=== PATIENT | female | born 1955 | race African-American/Black ===

== ENCOUNTER 2016-08-03 08:26 | Emergency (ER) | payer MEDICARE, MEDICAID ==
[~2016-08-03 08:26] MED LIST: ALPR0.25 PO; ALPR0.5T6 PO; AMLO5TAB2 PO; ASPI325T11 PO; ASPI81TA44 PO; CLON0.1T PO; FLUT16SP NS; IBUP-1007 PO; LOSA100T6 PO; METF10002 PO; METO25TA2 PO; METO25TA9 PO; MOME17SP NS; OMEP20TA PO; SIMV20TA3 PO; SITA50TA PO; TRAV5DRO EACHEYE
[2016-08-03 08:39] VITALS: BP 139/99
--- NOTE | 2016-08-03 09:56 | EKG ---
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
--- NOTE | 2016-08-03 10:01 | RAD ---
Right shoulder, 3 views, 08/03/2016: History: Shoulder pain No fracture or dislocation is identified. There is mild spurring at the AC joint. There are mild sclerotic and cystic changes at rotator cuff insertion sites on the greater tuberosity. The periarticular soft tissues are unremarkable. IMPRESSION: 1. Mild degenerative change. 2. No acute bony abnormality is detected.
--- NOTE | 2016-08-03 10:02 | RAD ---
Right hand, 3 views, 08/03/2016: History: Hand pain No fracture or destructive bony lesion is seen. There are mild degenerative changes at scattered interphalangeal joints as well as the first CMC joint. IMPRESSION: No acute bony abnormality is detected.
--- NOTE | 2016-08-03 10:27 | RAD ---
Examination: Ultrasound right upper extremity venous system History: History of right arm pain Comparison: None available Technique: Grayscale, color Doppler 2-D, spectral waveform of the right upper extremity venous system were performed Findings: The visualized internal jugular vein, subclavian vein, axillary vein, brachial vein, basilic vein, cephalic vein, radial and ulnar veins are patent. Impression: No evidence of deep venous thrombosis identified in the visualized right upper extremity venous system.
--- NOTE | 2016-08-03 10:51 | PHYS DOC ---
Past Medical History Past Medical History: Other Past Surgical History: Other Additional Past Surgical Histo: HEMMORHOIDECTOMY Alcohol Use: None Drug Use: None Adult General Chief Complaint Chief Complaint: UPPER EXTREMITY PAIN [facility] HPI Patient is a 60 year old female who presents with moderate right hand pain that she states has been going on for months. Patient denies any known injury. She states she had surgery done approximately 6 months ago to remove fluid from her ears. Patient states they did put an IV on her right wrist and she is concerned she could have a blood clot. Patient is also complaining of right shoulder pain which she states is coming from rotator cuff issues. Patient denies any known injury. She is requesting radiology studies to see why she has this pain including venous doppler. Patient denies any chest pain or shortness of breath. PCP is Dr.KOduri BENZ Review of Systems Review of Systems Constitutional: Denies fever or chills [] Eyes: Denies change in visual acuity, redness, or eye pain [] HENT: Denies nasal congestion or sore throat [] Respiratory: Denies cough or shortness of breath [] Cardiovascular: No additional information not addressed in HPI [] GI: Denies abdominal pain, nausea, vomiting, bloody stools or diarrhea [] MS: right shoulder and right hand pain Integument: Denies rash or skin lesions [] Neurologic: Denies headache, focal weakness or sensory changes [] Endocrine: Denies polyuria or polydipsia [] Allergies Allergies Allergies Coded Allergies Type Severity Reaction Last Updated Verified No Known Drug Allergies 07/17/13 No Physical Exam Physical Exam Constitutional: Well developed, well nourished, no acute distress, non-toxic appearance. [] HENT: Normocephalic, atraumatic, bilateral external ears normal, oropharynx moist, no oral exudates, nose normal. [] Eyes: PERRLA, EOMI, conjunctiva normal, no discharge. [] Neck: Normal range of motion, no tenderness, supple, no stridor. [] Cardiovascular:Heart rate regular rhythm, no murmur [] Lungs & Thorax: Bilateral breath sounds clear to auscultation [] Abdomen: Bowel sounds normal, soft, no tenderness, no masses, no pulsatile masses. [] Skin: Warm, dry, no erythema, no rash. [] Back: No tenderness, no CVA tenderness. [] Extremities: Right shoulder with no obvious deformity. No tenderness on palpation of the right shoulder. Limited range of motion to the right shoulder especially abduction. Adequate adduction of the right shoulder. Right wrist with small amount of generalized soft tissue swelling, tenderness diffusely throughout the hand. No scaphoid tenderness to the right wrist. Full range of motion to the right hand and fingers. Adequate medial ulna and radius sensation to the right forearm. +2 right radial pulse. Cap refill less than 2 seconds the right upper extremity. Sensation intact to the right upper extremity. Neurologic: Alert and oriented X 3, normal motor function, normal sensory function, no focal deficits noted. [] Psychologic: Affect normal, judgement normal, mood normal. [] Current Patient Data Vital Signs Vital Signs Date Time Temp Pulse Resp B/P Pulse Ox O2 Delivery O2 Flow Rate FiO2 08/03/16 08:39 98.5 96 16 100 Room Air 98.5 EKG EKG [] Radiology/Procedures Radiology/Procedures [] Course & Med Decision Making Course & Med Decision Making Pertinent Labs and Imaging studies reviewed. (See chart for details) Patient is in the ED with right hand and right shoulder pain for months. She is concerned she could have a DVT on the right forearm because she had surgery 6 months ago and they did put an IV in the right wrist. Venous Doppler of the right upper extremity is negative for any acute findings. Right hand x-rays noted for arthritis otherwise no acute findings. Right shoulder x-ray is negative for any acute findings. 09:[address] Giselle adams [facility] HR 80 no STEMI Patient was discharged with instructions to continue taking meloxicam at home which she has a prescription for. She was discharged with Medrol Dosepak. She was provided return precautions and discharged in stable condition. Dragon Disclaimer Dragon Disclaimer This electronic medical record was generated, in whole or in part, using a voice recognition dictation system. Departure Departure Impression: Primary Impression: Arthritis of right hand Additional Impressions: Shoulder pain, right Hand pain, right Disposition: 01 HOME, SELF-CARE Condition: STABLE Referrals: MANDEEP CARRASCO MD (PCP) Follow-up with your own doctor in the next 7 days Patient Instructions: Arthritis, Degenerative-Brief Additional Instructions: You were seen for right shoulder and right hand pain. Your x-rays are negative for any acute findings. You venous Doppler is negative for any blood clot. Ice and elevate the extremities. Take meloxicam as prescribed by Dr. Carrasco. Follow- up with your own doctor in one week. Scripts Methylprednisolone (Medrol)4 Mg Tab.ds.pk1 Pkg PO UD #1 PKG Prov:REID HUMPHREYS CURTIS 08/03/16 Problem Qualifiers Additional Impressions: Shoulder pain, right Chronicity: chronic Qualified Code: M25.511 - Pain in right shoulder REID HUMPHREYS DIETETICS TEACHER Aug 03, 2016 10:51
[2016-08-03] MEDS ORDERED: DEXAMETHASONE SOD PHOS 20 MG/5 ML VIAL. IM ONE (11:00)
[2016-08-03] MEDS ORDERED: METH4TAB2 PO (11:00)
[2016-08-03] MEDS ORDERED: KETOROLAC TROMETHAMINE 60 MG/2 ML SYRINGE. IM ONE (11:00)
== END 2016-08-03 11:31 | disposition home or self-care (01) ==
LOC: ER 08:26
DX: M19.041 Primary osteoarthritis, right hand (principal); M25.511 Pain in right shoulder
CPT/HCPCS: 73030; 73130; 93005; 93971; 96372; 99284; J1100; J1885

== ENCOUNTER 2017-06-21 15:05 | Emergency (ER) | payer MEDICARE, MEDICAID ==
[2017-06-21] MEDS: ACETAMINOPHEN 325 MG TABLET. PO ×2 (15:57)
[2017-06-21] MEDS: IBUPROFEN 600 MG TABLET. PO ×2 (15:57)
[2017-06-21] MEDS: OSELTAMIVIR 75 MG CAPSULE PO ×2 (15:57)
== END 2017-06-21 17:28 | disposition home or self-care (01) ==
LOC: ER 15:05
DX: J11.1 Influenza due to unidentified influenza virus with other respiratory manifestations (principal); E78.00 Pure hypercholesterolemia, unspecified; I10 Essential (primary) hypertension; E11.39 Type 2 diabetes mellitus with other diabetic ophthalmic complication; H40.9 Unspecified glaucoma
CPT/HCPCS: 71046; 99284

== ENCOUNTER 2018-01-18 10:48 | Emergency (ER) | payer MEDICAID, MEDICARE ==
[~2018-01-18] VITALS: Ht 170.2 cm; Wt 79.4 kg
[~2018-01-18 10:48] MED LIST changes: -AMLO5TAB2 PO; +AMLO5TAB7 PO; -ASPI81TA44 PO; +ASPI81TA59 PO; -LOSA100T6 PO; +LOSA100T7 PO; -METF10002 PO; +METF10007 PO; +METH4TAB2 PO; +METO-239 PO; -METO25TA9 PO; -OMEP20TA PO; +OMEP20TA8 PO; +ONDA4TAB10 SL; +OSEL75CA PO
[2018-01-18 10:50] VITALS: BP 177/86
[2018-01-18] MEDS ORDERED: PRED50TA PO (11:28)
--- NOTE | 2018-01-18 17:06 | PHYS DOC ---
Past Medical History Past Medical History: Diabetes-Type II, Glaucoma, High Cholesterol, Hypertension, Other Past Surgical History: Other Additional Past Surgical Histo: HEMMORHOIDECTOMY Alcohol Use: None Drug Use: None Adult General Chief Complaint Chief Complaint: SKIN RASH/ABSCESS HPI HPI Patient is a 62 year old female who presents with skin lesions. Patient has been having pruritic skin lesions over her lower extremities over the last 2 weeks. She became concerned today because she did not feel they were improving. No fever or chills. No other complaints. Review of systems is negative otherwise. Review of Systems Review of Systems Constitutional: Denies fever or chills Cardiovascular: No additional information GI: Denies abdominal pain Musculoskeletal: Denies back pain Integument: as documented above Neurologic: Denies headache Endocrine: Denies polyuria All other systems were reviewed and found to be within normal limits, except as documented in this note. Allergies Allergies Allergies Coded Allergies Type Severity Reaction Last Updated Verified No Known Drug Allergies 07/17/13 No Physical Exam Physical Exam Constitutional: Well developed, well nourished, no acute distress HENT: Normocephalic, atraumatic, bilateral external ears normal Eyes: PERRLA, EOMI, conjunctiva normal Lungs & Thorax: Bilateral breath sounds clear Skin: scattered erythematous papules 2-3 mm over the bilateral LE's. No vesicles. Some are excoriated from the patient scratching Back: No tenderness Extremities: No tenderness Neurologic: Alert and oriented X 3 Psychologic: Affect normal Current Patient Data Vital Signs Vital Signs Date Time Temp Pulse Resp B/P (MAP) Pulse Ox O2 Delivery O2 Flow Rate FiO2 01/18/18 10:50 99.2 105 24 177/86 (116) 97 Room Air 99.2 EKG EKG [] Radiology/Procedures Radiology/Procedures [] Course & Med Decision Making Course & Med Decision Making Pertinent Labs and Imaging studies reviewed. (See chart for details) Patient is evaluated for skin lesions documented above. Her review of systems is otherwise negative. She has findings which could represent asthma. Given the distribution of her lesions, these could also be flea bites. Either way, the patient is prescribed some prednisone to help with her pruritic symptoms. She is advised to follow-up with her primary care doctor and return to the ER for any new or worsening symptoms. Dragon Disclaimer Dragon Disclaimer This electronic medical record was generated, in whole or in part, using a voice recognition dictation system. Departure Departure Impression: Primary Impression: Eczema Disposition: 01 HOME, SELF-CARE Condition: GOOD Patient Instructions: Eczema Scripts Prednisone (PREDNISONE) 50 Mg Tablet 50 MG PO DAILY for 5 Days, #5 TAB Prov: JODIE STEPHENSON DO 01/18/18 JODIE STEPHENSON DO Jan 18, 2018 17:06
== END 2018-01-18 11:30 | disposition home or self-care (01) ==
LOC: ER 10:48
DX: L30.9 Dermatitis, unspecified (principal); E78.00 Pure hypercholesterolemia, unspecified; I10 Essential (primary) hypertension; E11.39 Type 2 diabetes mellitus with other diabetic ophthalmic complication; H40.9 Unspecified glaucoma
CPT/HCPCS: 99283

== ENCOUNTER 2019-06-30 22:00 | Inpatient (IN) | payer MEDICARE ==
[~2019-06-30] VITALS: Ht 162.6 cm; Wt 78.9 kg
[~2019-06-30 22:00] MED LIST changes: +AMLO5TAB10 PO; -AMLO5TAB7 PO; +LOSA100T14 PO; -LOSA100T7 PO; +PRED50TA PO; +SIMV20TA18 PO; -SIMV20TA3 PO
[2019-06-30 22:56] LABS: BASO # 0.1 x10^3/uL (0.0-0.2); BASO % 1 % (0-3); EOS # 0.2 x10^3/uL (0.0-0.7); EOS % 2 % (0-3); HEMATOCRIT 32.5 % (36.0-47.0); HEMOGLOBIN 10.9 g/dL (12.0-15.5); LYMPH % 27 % (24-48); MEAN CORPUSCULAR HEMOGLOBIN 31 pg (25-35); MEAN CORPUSCULAR HGB CONC 33 g/dL (31-37); MEAN CORPUSCULAR VOLUME 93 fL (79-100); MONO # 0.8 x10^3/uL (0.0-1.1); MONO % 7 % (0-9); NEUT # 6.8 x10^3/uL (1.8-7.7); NEUT % 63 % (31-73); PLATELET COUNT 444 x10^3/uL (140-400); RED BLOOD COUNT 3.51 x10^6/uL (3.50-5.40); RED CELL DISTRIBUTION WIDTH 15.2 % (11.5-14.5); WHITE BLOOD COUNT 10.8 x10^3/uL (4.0-11.0)
[2019-06-30 23:11] LABS: CALCIUM 9.6 mg/dL (8.5-10.1); CREATININE 1.1 mg/dL (0.6-1.0); GFR 61.1; POTASSIUM 4.3 mmol/L (3.5-5.1)
[2019-06-30 23:16] LABS: MAGNESIUM 1.8 mg/dL (1.8-2.4); TOTAL BILIRUBIN 0.2 mg/dL (0.2-1.0); TOTAL PROTEIN 7.9 g/dL (6.4-8.2)
[2019-07-01] MEDS ORDERED: ONDANSETRON PF 4 MG/2 ML VIAL. IVP ONE
[2019-07-01] MEDS ORDERED: fentaNYL PF VIAL 100 MCG/2 ML VIAL IVP ONE
--- NOTE | 2019-07-01 00:36 | RAD ---
CHEST AP ONLY Clinical Indication: Chest pain. Comparison: Two-view chest 06/21/2017. Findings: The cardiomediastinal silhouette is normal. Lungs are clear. There is no pneumothorax. No pleural effusion is appreciated. No acute bone abnormality. IMPRESSION: No acute cardiopulmonary process. Electronically signed by: Klever Garcia MD (07/01/2019 12:33 AM) [id number]
[2019-07-01] MEDS ORDERED: ONDANSETRON PF 4 MG/2 ML VIAL. IV PRN (06:15)
[2019-07-01] MEDS ORDERED: MORPHINE SULFATE 2 MG/ML VIAL. IV PRN (06:15)
--- NOTE | 2019-07-01 06:15 | PHYS DOC ---
Past Medical History Past Medical History: Diabetes-Type II, Glaucoma, High Cholesterol, Hypertension, Other Past Surgical History: Other Additional Past Surgical Histo: HEMMORHOIDECTOMY Smoking Status: Current Every Day Smoker Alcohol Use: None Drug Use: None Adult General Chief Complaint Chief Complaint: CHEST PAIN HPI HPI Patient is a 63 year old emailed presents with right-sided chest wall pain upon waking from sleep. Pain is rated moderate to severe as with palpation and deep breathing. Denies nausea vomiting or sweats. No back or flank pain. No abdominal pain. Denies leg pain and swelling. No other acute symptoms or complaints. [] Review of Systems Review of Systems ROS as per HPI All other systems were reviewed and found to be within normal limits, except as documented in this note. Current Medications Current Medications Current Medications Medications (Trade) Dose Ordered Sig/Case Start Time Stop Time Status Last Admin Dose Admin Fentanyl Citrate (Fentanyl 2ml Vial) 50 mcg 1X ONCE 07/01/19 00:00 2 00:01 DC 07/01/19 00:34 50 MCG Ondansetron HCl (Zofran) 4 mg 1X ONCE 07/01/19 00:00 07/01/19 00:01 DC 07/01/19 00:34 4 MG Allergies Allergies Allergies Coded Allergies Type Severity Reaction Last Updated Verified No Known Drug Allergies 07/17/13 No Physical Exam Physical Exam Constitutional: Well developed, well nourished, no acute distress, non-toxic appearance. [] HENT: Normocephalic, atraumatic, bilateral external ears normal, oropharynx moist, nose normal. [] Eyes: PERRLA, EOMI, conjunctiva normal, no discharge. [] Neck: Normal range of motion. [] Cardiovascular:Heart rate regular rhythm, no murmur [] Lungs & Thorax: Bilateral breath sounds clear to auscultation. [] Abdomen: Bowel sounds normal, soft, no tenderness. [] Skin: Warm, dry, no erythema, no rash. [] Back: No tenderness. [] Extremities: No tenderness, no edema. [] Neurologic: Alert and oriented X 3, normal motor function, normal sensory function, no focal deficits noted. [] Psychologic: Affect normal, judgement normal, mood normal. [] Current Patient Data Vital Signs Vital Signs Date Time Temp Pulse Resp B/P (MAP) Pulse Ox O2 Delivery O2 Flow Rate FiO2 07/01/19 00:30 76 14 137/69 (91) 97 Room Air 06/30/19 22:10 98.2 98.2 Lab Values Laboratory Tests Test 06/30/19 22:45 White Blood Count 10.8 x10^3/uL (4.0-11.0) Red Blood Count 3.51 x10^6/uL (3.50-5.40) Hemoglobin 10.9 g/dL (12.0-15.5) L Hematocrit 32.5 % (36.0-47.0) L Mean Corpuscular Volume 93 fL (79-100) Mean Corpuscular Hemoglobin 31 pg (25-35) Mean Corpuscular Hemoglobin Concent 33 g/dL (31-37) Red Cell Distribution Width 15.2 % (11.5-14.5) H Platelet Count 444 x10^3/uL (140-400) H Neutrophils (%) (Auto) 63 % (31-73) Lymphocytes (%) (Auto) 27 % (24-48) Monocytes (%) (Auto) 7 % (0-9) Eosinophils (%) (Auto) 2 % (0-3) Basophils (%) (Auto) 1 % (0-3) Neutrophils # (Auto) 6.8 x10^3/uL (1.8-7.7) Lymphocytes # (Auto) 3.0 x10^3/uL (1.0-4.8) Monocytes # (Auto) 0.8 x10^3/uL (0.0-1.1) Eosinophils # (Auto) 0.2 x10^3/uL (0.0-0.7) Basophils # (Auto) 0.1 x10^3/uL (0.0-0.2) Sodium Level 137 mmol/L (136-145) Potassium Level 4.3 mmol/L (3.5-5.1) Chloride Level 99 mmol/L (98-107) Carbon Dioxide Level 30 mmol/L (21-32) Anion Gap 8 (6-14) Blood Urea Nitrogen 20 mg/dL (7-20) Creatinine 1.1 mg/dL (0.6-1.0) H Estimated GFR (Cockcroft-Gault) 61.1 BUN/Creatinine Ratio 18 (6-20) Glucose Level 214 mg/dL (70-99) H Calcium Level 9.6 mg/dL (8.5-10.1) Magnesium Level 1.8 mg/dL (1.8-2.4) Total Bilirubin 0.2 mg/dL (0.2-1.0) Aspartate Amino Transferase (AST) 17 U/L (15-37) Alanine Aminotransferase (ALT) 23 U/L (14-59) Alkaline Phosphatase 130 U/L (46-116) H Troponin I Quantitative < 0.017 ng/mL (0.000-0.055) VR-Pqr-F-Type Natriuretic Peptide 48 pg/mL (0-124) Total Protein 7.9 g/dL (6.4-8.2) Albumin 4.0 g/dL (3.4-5.0) Albumin/Globulin Ratio 1.0 (1.0-1.7) Laboratory Tests 06/30/19 22:45 Laboratory Tests 06/30/19 22:45 EKG EKG [ekg: reviewed] Radiology/Procedures Radiology/Procedures [CXR: NAD] Course & Med Decision Making Course & Med Decision Making Pertinent Labs and Imaging studies reviewed. (See chart for details) [Symptoms improved with treatment. Will admit to the hospital service with stated cardiology consult.] Dragon Disclaimer Dragon Disclaimer This electronic medical record was generated, in whole or in part, using a voice recognition dictation system. Departure Departure Impression: Primary Impression: Chest pain Disposition: ADMITTED INPATIENT Condition: STABLE Referrals: MANDEEP CARRASCO MD (PCP) JUSTYN BRANDT DO Jul 01, 2019 06:15
[2019-07-01 07:00] VITALS: BP 116/54
--- NOTE | 2019-07-01 08:31 | PDOC2 ---
PIPER LE DIGITAL PRINT OPERATOR 07/01/19 0831: CARDIAC CONSULT DATE OF CONSULT Date of Consult DATE: 07/01/19 TIME: 08:27 REASON FOR CONSULT Reason for Consult: Chest pain REFERRING PHYSICIAN Referring Physician: Dr. Blount SOURCE Source: Chart review, Patient HISTORY OF PRESENT ILLNESS HISTORY OF PRESENT ILLNESS This is a 63 yo female who presented secondary to chest pain. Patient reports pain began around 6 pm last night located in her central and right chest. Describes as soreness. Is extremely tender to touch. Is not able to apply even light pressure to the chest without flinching due to pain. No associated dizz iness, diaphoresis, shortness of breath, palpitations, or nausea/vomiting. Has also had some pain in posterior right hip. No recent cardiac workup. No recent fevers, illness. No unusual activities recently although does have a granddaughter and picks her up occasionally PAST MEDICAL HISTORY Cardiovascular: HTN, Hyperlipidemia GI: GERD Psych: Anxiety, Depression Musculoskeletal: Osteoarthritis Endocrine: Diabetes PAST SURGICAL HISTORY Past Surgical History: Other (brain surgery secondary to hearing ) FAMILY HISTORY Family History: Diabetes, Heart Disease, Hypertension SOCIAL HISTORY Smoke: <1 pack per day ALCOHOL: none Drugs: None Lives: with Family CURRENT MEDICATIONS CURRENT MEDICATIONS Current Medications Medications (Trade) Dose Ordered Sig/Case Route PRN Reason Start Time Stop Time Status Last Admin Dose Admin Fentanyl Citrate (Fentanyl 2ml Vial) 50 mcg 1X ONCE IVP 07/01/19 00:00 07/01/19 00:01 DC 07/01/19 00:34 Ondansetron HCl (Zofran) 4 mg 1X ONCE IVP 07/01/19 00:00 07/01/19 00:01 DC 07/01/19 00:34 ALLERGIES ALLERGIES: Coded Allergies: No Known Drug Allergies (Unverified , 07/17/13) ROS Review of System 14 point ROS conducted with pertinent positives noted above in HPI PHYSICAL EXAM General: Alert, Oriented X3, Cooperative, No acute distress HEENT: Atraumatic, Mucous membr. moist/pink Lungs: Clear to auscultation, Other (central and right chest tendernes upon palpitation) Abdomen: Soft, No tenderness Extremities: No edema, Normal pulses Skin: No significant lesion Neuro: Normal speech, Sensation intact Psych/Mental Status: Mental status NL, Mood NL MUSCULOSKELETAL: Osteoarthritic changes both hands VITALS/I&O VITALS/I&O: Vital Signs Date Time Temp Pulse Resp B/P (MAP) Pulse Ox O2 Delivery O2 Flow Rate FiO2 07/01/19 06:00 70 12 144/62 (89) 95 Room Air 06/30/19 22:10 98.2 98.2 LABS Lab: Laboratory Tests Test 06/30/19 22:45 White Blood Count 10.8 x10^3/uL (4.0-11.0) Red Blood Count 3.51 x10^6/uL (3.50-5.40) Hemoglobin 10.9 g/dL (12.0-15.5) L Hematocrit 32.5 % (36.0-47.0) L Mean Corpuscular Volume 93 fL (79-100) Mean Corpuscular Hemoglobin 31 pg (25-35) Mean Corpuscular Hemoglobin Concent 33 g/dL (31-37) Red Cell Distribution Width 15.2 % (11.5-14.5) H Platelet Count 444 x10^3/uL (140-400) H Neutrophils (%) (Auto) 63 % (31-73) Lymphocytes (%) (Auto) 27 % (24-48) Monocytes (%) (Auto) 7 % (0-9) Eosinophils (%) (Auto) 2 % (0-3) Basophils (%) (Auto) 1 % (0-3) Neutrophils # (Auto) 6.8 x10^3/uL (1.8-7.7) Lymphocytes # (Auto) 3.0 x10^3/uL (1.0-4.8) Monocytes # (Auto) 0.8 x10^3/uL (0.0-1.1) Eosinophils # (Auto) 0.2 x10^3/uL (0.0-0.7) Basophils # (Auto) 0.1 x10^3/uL (0.0-0.2) Sodium Level 137 mmol/L (136-145) Potassium Level 4.3 mmol/L (3.5-5.1) Chloride Level 99 mmol/L (98-107) Carbon Dioxide Level 30 mmol/L (21-32) Anion Gap 8 (6-14) Blood Urea Nitrogen 20 mg/dL (7-20) Creatinine 1.1 mg/dL (0.6-1.0) H Estimated GFR (Cockcroft-Gault) 61.1 BUN/Creatinine Ratio 18 (6-20) Glucose Level 214 mg/dL (70-99) H Calcium Level 9.6 mg/dL (8.5-10.1) Magnesium Level 1.8 mg/dL (1.8-2.4) Total Bilirubin 0.2 mg/dL (0.2-1.0) Aspartate Amino Transferase (AST) 17 U/L (15-37) Alanine Aminotransferase (ALT) 23 U/L (14-59) Alkaline Phosphatase 130 U/L (46-116) H Troponin I Quantitative < 0.017 ng/mL (0.000-0.055) XT-Kal-W-Type Natriuretic Peptide 48 pg/mL (0-124) Total Protein 7.9 g/dL (6.4-8.2) Albumin 4.0 g/dL (3.4-5.0) Albumin/Globulin Ratio 1.0 (1.0-1.7) Laboratory Tests 06/30/19 22:45 Laboratory Tests 06/30/19 22:45 ECHOCARDIOGRAM ECHOCARDIOGRAM <Conclusion> Left ventricle systolic function is normal. The Ejection Fraction is 60-65%. Transmitral Doppler flow pattern is Grade I-abnormal relaxation pattern. The aortic valve is mildly calcified with normal motion. Doppler and Color Flow revealed trace to mild tricuspid regurgitation. The PA pressure was estimated at 21 mmHg. The IVC is normal in size and collapses >50% with inspiration. There is no evidence of significant pericardial effusion. DATE: 12/15/13 1024 STRESS TEST STRESS TEST Conclusion 1. No evidence of significant ischemia or previous myocardial infarction appreciated. 2. Ejection fraction calculated to be 74% with normal wall motion on gated SPECT images. 3. Normal nuclear imaging scan. DATE: 12/14/13 1419 Stress Echo <Conclusion> The left ventricle is normal in size and in both the rest and stress images. EF 65% Mild LVH. DATE: 10/11/15 1654 ASSESSMENT/PLAN ASSESSMENT/PLAN 1. Chest pain, atypical. Most probably MSK in origin 2. Hypertension; controlled 3. Hyperlipidemia 4. Diabetes, II 5. GERD 6. Tobaccoism; discussed/encouraged cessation Recommendations Trend troponin Lipids ASA Given risk factors, will obtain echo to assess LV systolic function If WNL, may discharge from a CV standpoint NUVIA GREENBERG MD 07/01/192101: CARDIAC CONSULT ASSESSMENT/PLAN ASSESSMENT/PLAN Patient seen and examined. agree with TRAILHEAD CONSTRUCTION WORKER's assessment and plan. CP with atypical features [place] ruled out 2D echo showed normal LVF without any WMA Plan ischemic eval as outpatient Thank you for your consultation PIPER LE APRN Jul 01, 2019 08:31 NUVIA GREENBERG MD Jul 01, 2019 21:02
[2019-07-01 08:38] LABS: CHOLESTEROL/HDL RATIO 4.8
--- NOTE | 2019-07-01 10:08 | EKG ---
[facility] [address] [place] [address] Test Date: 2019-06-30 Test Time: 22:08:53 Pat Name: IVANA WADE Department: Room: Gender: F Senior Quality Manager: : 1955 Requested By: JUSTYN BRANDT Order Number: [id number] Reading MD: Measurements Intervals [place] Rate: 97 P: 63 GA: 162 QRS: 42 QRSD: 76 T: 28 QT: 344 QTc: 441 Interpretive Statements SINUS RHYTHM LEFT ATRIAL ABNORMALITY ABNORMAL ECG RI6.01 No previous ECG available for comparison
--- NOTE | 2019-07-01 10:43 | PDOC ---
Provider Note Provider Note Pt seen in ER .H&P dictated.#[id number]. MANDEEP CARRASCO MD Jul 01, 2019 10:43
[2019-07-01] MEDS ORDERED: DEXTROSE 50% 25 GM / 50ML DISP.SYRIN. IV PRN (10:45)
[2019-07-01] MEDS ORDERED: IV DEXTROSE 5% 250 ML BAG. IV PRN (10:45)
[2019-07-01 11:00] VITALS: BP 138/63
[2019-07-01] MEDS: METOPROLOL SUCC 24HR ER 50 MG TAB.ER.24H. PO SCH (11:36)
[2019-07-01] MEDS: LOSARTAN POTASSIUM 50 MG TABLET. PO SCH (11:36)
[2019-07-01] MEDS: SIMVASTATIN 20 MG TABLET PO SCH (11:36)
[2019-07-01] MEDS: IV NORMAL SALINE 1000ML BAG 1,000 ML IV SCH (11:37)
[2019-07-01] MEDS: ASPIRIN ENTERIC COATED 325 MG TABLET.DR. PO SCH (11:37)
[2019-07-01] MEDS: PANTOPRAZOLE 40 MG TABLET.DR. PO SCH (11:37)
[2019-07-01 12:31] LABS: AMYLASE 55 U/L (25-115); LIPASE 50 U/L (73-393)
[2019-07-01] MEDS: INSULIN LISPRO 300 UNITS/3 ML VIAL. SQ SCH ×2 (12:44→17:32)
--- NOTE | 2019-07-01 12:45 | HP ---
ADMIT DATE: 07/01/2019 REASON FOR ADMISSION TO THE HOSPITAL: Epigastric chest pain. The patient has history of diabetes, hypertension, hyperlipidemia, risk factors. HISTORY OF PRESENT ILLNESS: The patient is a 63-year-old female, complains of epigastric pain. Pain is slightly to the right side of the sternum, getting progressively worse and she came to the Emergency Room. The patient had an EKG. Cardiac enzymes were negative. She was admitted for further cardiac evaluation. PAST MEDICAL HISTORY: History of diabetes, hypertension, hyperlipidemia, smoking. PAST SURGICAL HISTORY: Tubal ligation. She had a chronic mastoid surgery done by ENT at [facility]. ALLERGIES: No known allergies. MEDICATIONS: Xanax, aspirin, metformin, metoprolol, simvastatin, losartan, Nasonex, omeprazole, eyedrops for glaucoma. The patient does not take metformin all the time because of side effects. PERSONAL HISTORY: Smokes 1 pack for 30 years, trying to cut down. FAMILY HISTORY: Positive for diabetes. Her son has multiple sclerosis. REVIEW OF SYSTEMS: CARDIAC: She has pain in the right side of the sternum, epigastric. GASTROINTESTINAL: She has some heartburn. GENERAL: Denies any fever. CHEST: No shortness of breath. She has some dry cough. Rest of the 14 systems were reviewed and negative. PHYSICAL EXAMINATION: VITAL SIGNS: At the time of admission shows a temperature 98, pulse 96, respirations 18, blood pressure 156/80, and saturation 94% on room air. HEENT: Head is atraumatic. Pupils equal. Oral cavity: No congestion. NECK: Supple. Thyroid not enlarged. JVD not elevated. CHEST: Symmetrical. CARDIOVASCULAR: S1, S2. LUNGS: Clear. ABDOMEN: Slight epigastric tenderness to deep palpation. No rebound. Bowel sounds are present. EXTERNAL GENITALIA: No Camacho. RECTAL: Deferred. EXTREMITIES: No clubbing, cyanosis or edema. Pulses 1+. NEUROLOGIC: Cranial nerves intact. Power 5/5 in all extremities. No focal deficits noted. LABORATORY DATA: Shows a white count of 11, hemoglobin 11, platelets 444. Electrolytes show sodium 137, potassium 4.3, chloride 99, bicarb 30, BUN 20, creatinine 1.1, glucose 214, magnesium 1.8. LFTs were normal. BNP was negative. Troponin was negative x 2. Thyroid 0.9, cholesterol 193, LDL 127. Chest x-ray: No acute abnormality. EKG negative for ischemia. FINAL IMPRESSION: 1. Epigastric pain, rule out coronary artery disease. 2. Possible gallbladder disease. 3. Gastroesophageal reflux disease. 4. Diabetes. 5. Hypertension. 6. Hyperlipidemia. 7. Smoking history. 8. History of mastoid surgery. PLAN: At this time, was admitted to the hospital, seen by Cardiology. Echocardiogram and stress test 5-6 years ago was negative for ischemia and we will also have GI consult. Gallbladder sonogram and see how the patient improves in the next 24-48 hours. MANDEEP CARRASCO MD DR: CAROLINE/traci JOB#: [id number] / [id number]
--- NOTE | 2019-07-01 13:12 | RAD ---
Complete abdomen ultrasound study Clinical indications: Abdominal pain. FINDINGS: No focal enlargement of the pancreas is seen. The tail is partially obscured due to overlying bowel gas. The intrahepatic portion of the IVC is unremarkable. The mid and distal abdominal aorta are obscured by overlying bowel gas. No focal hepatic mass is seen. The liver measures 16.4 cm in length. The gallbladder is normal and no gallstones are seen. The extra hepatic bile duct measures 4.6 mm in caliber which is normal. The length of the right kidney is 10.7 cm and the length of the left kidney is 10.0 cm. No hydronephrosis or renal mass or perinephric fluid collection is seen on either side. The spleen measures 9.3 cm in length which is normal. No ascites is seen. IMPRESSION: Unremarkable study. Electronically signed by: Josue Jackson MD (07/01/2019 1:09 PM) [facility]
--- NOTE | 2019-07-01 13:50 | CARD ---
MR#: [id number] Date of Study: 07/01/2019 Ordering Physician: PIPER LE, Referring Physician: PIPER LE, Tech: Kamilah Spence RDCS APPROVED REPORT EXAM: Two-dimensional and M-mode echocardiogram with Doppler and color Doppler. Other Information Quality : AverageHR: 70bpm Rhythm : NSR INDICATION Chest Pain RISK FACTORS Hypertension Hyperlipidemia Diabetes 2D DIMENSIONS RVDd3.4 (2.9-3.5cm)IVSd1.1 (0.7-1.1cm) Aortic Root(2D)3.0 (2.0-3.7cm)LVDd3.8 (3.9-5.9cm) LVOT Diameter1.9 (1.8-2.4cm)PWd1.2 (0.7-1.1cm) LVDs2.2 (2.5-4.0cm)FS (%) 42.5 % SV44.9 mlLVEF(%)74.3 (>50%) Aortic Valve AoV Peak Jose.105.8cm/Kj Peak GR.4.5mmHg LVOT Peak Jose.86.7cm/sAVA (VMAX)2.22cm2 Mitral Valve MV E Jkwmpxjb36.6cm/sMV DECEL [id number] MV A Sjwrizzj955.2cm/sE/A Ratio0.7 MV A Eogeiqhx167ub Pulmonary Valve PV Peak Ygzzzkyh826.7cm/s Tricuspid Valve RAP [id number] Pulmonary Vein S1 Pqbajhdo23.1cm/sD2 Jlggyrup66.5cm/s PVa [id number] LEFT VENTRICLE The left ventricle is normal size. There is borderline concentric left ventricular hypertrophy. The l eft ventricular systolic function is normal and the ejection fraction is within normal range. The Eje ction Fraction is 60-65%. There is normal LV segmental wall motion. Transmitral Doppler flow pattern is Grade I-abnormal relaxation pattern. There is no ventricular septal defect visualized. RIGHT VENTRICLE The right ventricle is normal size. There is normal right ventricular wall thickness. The right ventr icular systolic function is normal. ATRIA The left atrium size is normal. The right atrium size is normal. The interatrial septum is intact wit h no evidence for an atrial septal defect or patent foramen ovale as noted on 2-D or Doppler imaging. AORTIC VALVE The aortic valve is normal in structure and function. Doppler and Color Flow revealed no significant aortic regurgitation. There is no significant aortic valvular stenosis. MITRAL VALVE The mitral valve is normal in structure and function. There is no mitral valve stenosis. Doppler and Color Flow revealed no mitral valve regurgitation noted. TRICUSPID VALVE The tricuspid valve is normal in structure and function. Doppler and Color Flow revealed no tricuspid valve regurgitation noted. Unable to assess PA pressure. There is no tricuspid valve stenosis. PULMONIC VALVE The pulmonic valve is not well visualized. Doppler and Color Flow revealed no pulmonic valvular regur gitation. There is no pulmonic valvular stenosis. GREAT VESSELS The aortic root is normal in size. The ascending aorta is normal in size. The IVC is normal in size a nd collapses >50% with inspiration. PERICARDIAL EFFUSION There is no pleural effusion. There is no evidence of significant pericardial effusion. Critical Notification Critical Value: No <Conclusion> The left ventricular systolic function is normal and the ejection fraction is within normal range. Th e Ejection Fraction is 60-65%. There is normal LV segmental wall motion. Signed by : Mandeep Osman, Electronically Approved : 07/01/2019 13:49:32
[2019-07-01 14:17] VITALS: BP 130/58
--- NOTE | 2019-07-01 14:52 | PDOC2 ---
GI CONSULT Reason For Consult: epigastric pain, EGD HPI: HPI: 63 y/o female in ER. Pain under right breast was first noted after she woke up yesterday evening. Constant, "just hurts real bad." No precipitating events but sometimes her grandbaby digs her elbow into her chest when she holds her. Unchanged with eating. Long h/o dyspeptic symptoms - describes bad taste in her mouth (improved w/ pickle juice) and indigestion. Took omeprazole for a long time but stopped 8-9 months ago because she thought it made her symptoms worse. No dysphagia, n/v, abd pain, diarrhea, constipation, hematochezia, or melena. Has been on and off meds for DM, weight fluctuates w/ this. Also reports right lower back and "sciatic pain" that was worse when given morphine last night. No previous EGD or colonoscopy. No GB, liver, pancreas, or PUD history. Excedrin PRN, also daily ASA. PMH: PMH: HTN, HLD, DM, OA, glaucoma, anxiety/depression, GERD brain surgery for hearing loss, thyroid biopsy FH: Family History: Cancer (breast, ovarian) Social History: Smoke: 1 pack per day ALCOHOL: none Drugs: None ROS: GEN: Denies fevers, chills, sweats HEENT: Denies blurred vision, sore throat CV: +chest pain RESP: Denies shortness of air, cough GI: Per HPI : Denies hematuria, dysuria ENDO: Denies weight changes NEURO: Denies confusion, dizziness MSK: +back pain SKIN: Denies jaundice, pruritus Vitals: Vitals: Vital Signs Date Time Temp Pulse Resp B/P (MAP) Pulse Ox O2 Delivery O2 Flow Rate FiO2 07/01/19 14:17 66 130/58 (82) 97 Room Air 07/01/19 06:00 12 06/30/19 22:10 98.2 98.2 Labs: Labs: Laboratory Tests Test 06/30/19 22:45 07/01/19 08:02 07/01/19 09:02 07/01/19 12:12 White Blood Count 10.8 x10^3/uL (4.0-11.0) Red Blood Count 3.51 x10^6/uL (3.50-5.40) Hemoglobin 10.9 g/dL (12.0-15.5) Hematocrit 32.5 % (36.0-47.0) Mean Corpuscular Volume 93 fL (79-100) Mean Corpuscular Hemoglobin 31 pg (25-35) Mean Corpuscular Hemoglobin Concent 33 g/dL (31-37) Red Cell Distribution Width 15.2 % (11.5-14.5) Platelet Count 444 x10^3/uL (140-400) Neutrophils (%) (Auto) 63 % (31-73) Lymphocytes (%) (Auto) 27 % (24-48) Monocytes (%) (Auto) 7 % (0-9) Eosinophils (%) (Auto) 2 % (0-3) Basophils (%) (Auto) 1 % (0-3) Neutrophils # (Auto) 6.8 x10^3/uL (1.8-7.7) Lymphocytes # (Auto) 3.0 x10^3/uL (1.0-4.8) Monocytes # (Auto) 0.8 x10^3/uL (0.0-1.1) Eosinophils # (Auto) 0.2 x10^3/uL (0.0-0.7) Basophils # (Auto) 0.1 x10^3/uL (0.0-0.2) Sodium Level 137 mmol/L (136-145) Potassium Level 4.3 mmol/L (3.5-5.1) Chloride Level 99 mmol/L (98-107) Carbon Dioxide Level 30 mmol/L (21-32) Anion Gap 8 (6-14) Blood Urea Nitrogen 20 mg/dL (7-20) Creatinine 1.1 mg/dL (0.6-1.0) Estimated GFR (Cockcroft-Gault) 61.1 BUN/Creatinine Ratio 18 (6-20) Glucose Level 214 mg/dL (70-99) Calcium Level 9.6 mg/dL (8.5-10.1) Magnesium Level 1.8 mg/dL (1.8-2.4) Total Bilirubin 0.2 mg/dL (0.2-1.0) Aspartate Amino Transf (AST/SGOT) 17 U/L (15-37) Alanine Aminotransferase (ALT/SGPT) 23 U/L (14-59) Alkaline Phosphatase 130 U/L (46-116) Troponin I Quantitative < 0.017 ng/mL (0.000-0.055) < 0.017 ng/mL (0.000-0.055) ON-Pyc-U-Type Natriuretic Peptide 48 pg/mL (0-124) Total Protein 7.9 g/dL (6.4-8.2) Albumin 4.0 g/dL (3.4-5.0) Albumin/Globulin Ratio 1.0 (1.0-1.7) Triglycerides Level 131 mg/dL (0-150) Cholesterol Level 193 mg/dL (0-200) LDL Cholesterol, Calculated 127 mg/dL (0-100) VLDL Cholesterol, Calculated 26 mg/dL (0-40) Non-HDL Cholesterol Calculated 153 mg/dL (0-129) HDL Cholesterol 40 mg/dL (40-60) Cholesterol/HDL Ratio 4.8 Amylase Level 55 U/L (25-115) Lipase 50 U/L (73-393) Thyroid Stimulating Hormone (TSH) 0.953 uIU/mL (0.358-3.74) Glucose (Fingerstick) 204 mg/dL (70-99) 234 mg/dL (70-99) Allergies: Coded Allergies: No Known Drug Allergies (Unverified , 07/17/13) Medications: Current Medications Medications (Trade) Dose Ordered Sig/Case Route PRN Reason Start Time Stop Time Status Last Admin Dose Admin Fentanyl Citrate (Fentanyl 2ml Vial) 50 mcg 1X ONCE IVP 07/01/19 00:00 07/01/19 00:01 DC 07/01/19 00:34 Ondansetron HCl (Zofran) 4 mg 1X ONCE IVP 07/01/19 00:00 07/01/19 00:01 DC 07/01/19 00:34 Aspirin (Ecotrin) 325 mg DAILY PO 07/01/19 12:00 07/01/19 11:37 Metoprolol Succinate (Toprol Xl) 50 mg DAILY PO 07/01/19 12:00 07/01/19 11:36 Simvastatin (Zocor) 20 mg DAILY PO 07/01/19 11:30 07/01/19 11:36 Losartan Potassium (Cozaar) 100 mg DAILY PO 07/01/19 11:30 07/01/19 11:36 Pantoprazole Sodium (Protonix) 40 mg DAILYAC PO 07/01/19 11:30 07/01/19 11:37 Insulin Human Lispro (HumaLOG) 0-5 UNITS TIDWMEALS SQ 07/01/19 12:00 07/01/19 12:44 Sodium Chloride 1,000 ml @ 100 mls/hr Q10H IV 07/01/19 10:45 07/01/19 11:37 Imaging: Imaging: CXR IMPRESSION: No acute cardiopulmonary process. Abd US IMPRESSION: Unremarkable study. Echocardiogram <Conclusion> The left ventricular systolic function is normal and the ejection fraction is within normal range. The Ejection Fraction is 60-65%. There is normal LV segmental wall motion. PE: GEN: NAD HEENT: Atraumatic, PERRL LUNGS: CTAB HEART: RRR, chest wall tenderness - central and to right under breast and along rib ABD: NABS, S/ND/NT EXTREMITY: No edema SKIN: No rashes, no jaundice NEURO/PSYCH: A & O 3 A/P: A/P: Chest pain - seems MSK Chronic anemia Dyspepsia - chronic, stopped PPI, no previous EGD CRC screen - none -- Plan for EGD tomorrow afternoon w/ Dr. Foster. Check iron profile. Agree w/ PPI. Needs outpt screening colonoscopy. OMKAR MENDES Jul 01, 2019 14:52
[2019-07-01] MEDS ORDERED: KETOROLAC 15 MG/ML VIAL. IVP ONE (16:30)
[2019-07-01] MEDS: metFORMIN 500 MG TABLET PO SCH (17:00)
[2019-07-01 18:48] VITALS: BP 113/55
[2019-07-01 23:14] VITALS: BP 132/63
[2019-07-02] MEDS: cloNIDine HCL 0.1 MG TABLET PO SCH ×2 (00:30→20:57)
[2019-07-02] MEDS: LATANOPROST 0.005% OPHTH SOLUTION 2.5ML BOTTLE. OU SCH ×2 (00:45→20:57)
[2019-07-02 02:08] LABS: HEMOGLOBIN A1C 9.5 % (4.8-5.6)
[2019-07-02 03:50] VITALS: BP 137/36
[2019-07-02] MEDS: IV NORMAL SALINE 1000ML BAG 1,000 ML IV SCH ×3 (04:07→16:45)
[2019-07-02 05:49] LABS: BASO % 0 % (0-3); EOS # 0.1 x10^3/uL (0.0-0.7); EOS % 2 % (0-3); HEMOGLOBIN 9.6 g/dL (12.0-15.5); LYMPH # 2.6 x10^3/uL (1.0-4.8); LYMPH % 37 % (24-48); MEAN CORPUSCULAR HEMOGLOBIN 31 pg (25-35); MEAN CORPUSCULAR HGB CONC 33 g/dL (31-37); MEAN CORPUSCULAR VOLUME 93 fL (79-100); MONO # 0.6 x10^3/uL (0.0-1.1); MONO % 8 % (0-9); NEUT # 3.8 x10^3/uL (1.8-7.7); NEUT % 53 % (31-73); PLATELET COUNT 354 x10^3/uL (140-400); RED BLOOD COUNT 3.11 x10^6/uL (3.50-5.40); RED CELL DISTRIBUTION WIDTH 15.3 % (11.5-14.5); WHITE BLOOD COUNT 7.2 x10^3/uL (4.0-11.0)
[2019-07-02 06:29] LABS: CALCIUM 8.8 mg/dL (8.5-10.1); CREATININE 1.2 mg/dL (0.6-1.0); GFR 55.3; POTASSIUM 4.8 mmol/L (3.5-5.1)
[2019-07-02] MEDS: PANTOPRAZOLE 40 MG TABLET.DR. PO SCH (07:30)
[2019-07-02 07:59] VITALS: BP 143/41
[2019-07-02] MEDS: INSULIN LISPRO 300 UNITS/3 ML VIAL. SQ SCH ×3 (08:00→17:53)
[2019-07-02] MEDS: metFORMIN 500 MG TABLET PO SCH (08:00)
[2019-07-02] MEDS: ALPRAZolam 0.5 MG TABLET PO SCH (09:00)
[2019-07-02] MEDS: ASPIRIN ENTERIC COATED 325 MG TABLET.DR. PO SCH (09:00)
[2019-07-02] MEDS: LOSARTAN POTASSIUM 50 MG TABLET. PO SCH (09:00)
[2019-07-02] MEDS: SIMVASTATIN 20 MG TABLET PO SCH (09:00)
[2019-07-02] MEDS: METOPROLOL SUCC 24HR ER 50 MG TAB.ER.24H. PO SCH (09:00)
[2019-07-02] MEDS: FLUTICASONE 50MCG/NASAL SPRAY 16GM BOTTLE. NS SCH (09:00)
--- NOTE | 2019-07-02 09:32 | PDOC ---
PROGRESS NOTES Subjective Subjective abd pain present Objective Objective Vital Signs Date Time Temp Pulse Resp B/P (MAP) Pulse Ox O2 Delivery O2 Flow Rate FiO2 07/02/19 07:59 98.1 68 18 143/41 (75) 96 Room Air 98.1 Intake and Output 07/02/19 07:00 Intake Total 360 ml Balance 360 ml Intake Oral 360 ml # Voids 3 Physical Exam Abdomen: Soft, No tenderness Extremities: No edema, Normal pulses General: Alert, Oriented X3, Cooperative, No acute distress HEENT: Atraumatic, Mucous membr. moist/pink Lungs: Clear to auscultation, Other (central and right chest tendernes upon palpitation) MUSCULOSKELETAL: Osteoarthritic changes both hands Neuro: Normal speech, Sensation intact Psych/Mental Status: Mental status NL, Mood NL Skin: No significant lesion Diagnosis Problem List Problems Medical Problems: (1) Chest pain Status: Acute Assessment Assessment Problems Medical Problems: (1) Chest pain Status: Acute FINAL IMPRESSION: 1. Epigastric pain, rule out coronary artery disease. 2. Possible gallbladder disease. 3. Gastroesophageal reflux disease. 4. Diabetes. 5. Hypertension. 6. Hyperlipidemia. 7. Smoking history. 8. History of mastoid surgery. PLAN: ECHo good lvf cardiac enzymes neg Sono abd -neg. labs good. CT pimentel abdomen today later At this time, was admitted to the hospital, seen by Cardiology. Echocardiogram and stress test 5-6 years ago was negative for ischemia and we will also have GI consult. Gallbladder sonogram and see how the patient improves in the next 24-48 hours. Plan Plan of Care Problems Medical Problems: (1) Chest pain Status: Acute Comment Review of Relevant I have reviewed the following items (where applicable) has been applied. Labs Laboratory Tests Test 07/01/19 12:12 07/01/19 16:29 07/02/19 00:06 07/02/19 04:08 Glucose (Fingerstick) 234 mg/dL (70-99) 193 mg/dL (70-99) 257 mg/dL (70-99) White Blood Count 7.2 x10^3/uL (4.0-11.0) Red Blood Count 3.11 x10^6/uL (3.50-5.40) Hemoglobin 9.6 g/dL (12.0-15.5) Hematocrit 29.0 % (36.0-47.0) Mean Corpuscular Volume 93 fL (79-100) Mean Corpuscular Hemoglobin 31 pg (25-35) Mean Corpuscular Hemoglobin Concent 33 g/dL (31-37) Red Cell Distribution Width 15.3 % (11.5-14.5) Platelet Count 354 x10^3/uL (140-400) Neutrophils (%) (Auto) 53 % (31-73) Lymphocytes (%) (Auto) 37 % (24-48) Monocytes (%) (Auto) 8 % (0-9) Eosinophils (%) (Auto) 2 % (0-3) Basophils (%) (Auto) 0 % (0-3) Neutrophils # (Auto) 3.8 x10^3/uL (1.8-7.7) Lymphocytes # (Auto) 2.6 x10^3/uL (1.0-4.8) Monocytes # (Auto) 0.6 x10^3/uL (0.0-1.1) Eosinophils # (Auto) 0.1 x10^3/uL (0.0-0.7) Basophils # (Auto) 0.0 x10^3/uL (0.0-0.2) Sodium Level 140 mmol/L (136-145) Potassium Level 4.8 mmol/L (3.5-5.1) Chloride Level 103 mmol/L (98-107) Carbon Dioxide Level 27 mmol/L (21-32) Anion Gap 10 (6-14) Blood Urea Nitrogen 32 mg/dL (7-20) Creatinine 1.2 mg/dL (0.6-1.0) Estimated GFR (Cockcroft-Gault) 55.3 Glucose Level 339 mg/dL (70-99) Calcium Level 8.8 mg/dL (8.5-10.1) Medications Current Medications Acetaminophen/ Hydrocodone Bitart (Lortab 5/325) 1 tab PRN Q6HRS PRN PO PAIN; Start 07/01/19 at 10:45 Alprazolam (Xanax) 0.25 mg DAILY PO ; Start 07/02/19 at 09:00 Aspirin (Ecotrin) 325 mg DAILY PO Last administered on 07/01/19at 11:37; Start 07/01/19 at 12:00 Clonidine HCl (Catapres) 0.1 mg QHS PO Last administered on 07/02/19at 00:30; Start 07/01/19 at 21:00 Dextrose (Dextrose 50%-Water Syringe) 12.5 gm PRN Q15MIN PRN IV SEE COMMENTS; Start 07/01/19 at 10:45 Dextrose (Iv Dextrose 5%) 250 ml PRN Q15MIN PRN IV SEE COMMENTS; Start 07/01/19 at 10:45 Fluticasone Propionate (Flonase) 2 spray DAILY NS ; Start 07/02/19 at 09:00 Insulin Human Lispro (HumaLOG) 0-5 UNITS TIDWMEALS SQ Last administered on 07/01/19at 17:32; Start 07/01/19 at 12:00 Ketorolac Tromethamine (Toradol 15mg Vial) 15 mg 1X ONCE IVP Last administered on 07/01/19at 17:30; Start 07/01/19 at 16:30; Stop 07/01/19 at 16:31; Status DC Latanoprost (Xalatan) 1 drop QHS OU Last administered on 07/02/19at 00:45; Start 07/01/19 at 21:00 Losartan Potassium (Cozaar) 100 mg DAILY PO Last administered on 07/01/19at 11:36; Start 07/01/19 at 11:30 Metformin HCl (Glucophage) 1,000 mg BIDWMEALS PO ; Start 07/01/19 at 17:00 Metoprolol Succinate (Toprol Xl) 50 mg DAILY PO Last administered on 07/01/19at 11:36; Start 07/01/19 at 12:00 Pantoprazole Sodium (Protonix) 40 mg DAILYAC PO Last administered on 07/01/19at 11:37; Start 07/01/19 at 11:30 Simvastatin (Zocor) 20 mg DAILY PO Last administered on 07/01/19at 11:36; Start 07/01/19 at 11:30 Sodium Chloride 1,000 ml @ 100 mls/hr Q10H IV Last administered on 07/02/19at 04:07; Start 07/01/19 at 10:45 Vitals/I & O Vital Sign - Last 24 Hours 07/01/19 07/01/19 07/01/19 07/01/19 11:00 11:36 11:36 14:17 Pulse 64 77 79 66 B/P (MAP) 138/63 (88) 143/65 143/65 130/58 (82) Pulse Ox 97 97 O2 Delivery Room Air Room Air 07/01/19 07/01/19 07/01/19 07/02/19 18:48 22:00 23:14 00:30 Temp 98.7 98.7 Pulse 67 66 66 Resp 18 B/P (MAP) 113/55 (74) 132/63 (86) 132/63 Pulse Ox 100 96 O2 Delivery Room Air Room Air Room Air 07/02/19 07/02/19 03:50 07:59 Temp 98.6 98.1 98.6 98.1 Pulse 74 68 Resp 18 18 B/P (MAP) 137/36 (69) 143/41 (75) Pulse Ox 95 96 O2 Delivery Room Air Room Air Intake and Output 07/01/19 07/01/19 07/02/19 15:00 23:00 07:00 Intake Total 240 ml 120 ml Balance 240 ml 120 ml MANDEEP CARRASCO MD Jul 02, 2019 09:32
--- NOTE | 2019-07-02 09:50 | NUR ---
SS following for discharge planning. SS reviewed pt chart. Pt is from home and is currently on room air. SS will continue to follow for discharge planning.
[2019-07-02 11:59] VITALS: BP 138/63
[2019-07-02] MEDS ORDERED: LIDOCAINE 2% PF 5 ML VIAL. ONE (13:28)
[2019-07-02] MEDS ORDERED: PROPOFOL 20 ML IV ONE (13:28)
--- NOTE | 2019-07-02 13:53 | PDOC4 ---
PROCEDURE Procedure EGD/biopsies/dilation Indication: NCCP, dysphagia Meds: per anesthesia Findings: E--mild Shatzki's ring at GEJ. Mild reflux changes as well. G--Antral erosions; biopsies taken. D--Normal to second portion. --Dilated with 52F Vladivia. Some blood on dilator after. Re-scoped into esophagus. Had abrasion on soft palate. No blood in esophagus or airway. Anna. well otherwise. IMP: GERD Shatzki's, dilated. Antral erosions, biopsies pending REC: Continue PPI. Await biopsies. FELICIA COLMENARES MD Jul 02, 2019 13:53
[2019-07-02] MEDS ORDERED: IOHEXOL 300 MG/ML 100ML VIAL. IV ONE (14:15)
[2019-07-02] MEDS ORDERED: IOHEXOL 240 MG/ML 50ML VIAL. PO ONE (14:15)
[2019-07-02] MEDS ORDERED: CONTRAST GIVEN. MC PRN (14:30)
[2019-07-02 15:19] VITALS: BP 120/51
--- NOTE | 2019-07-02 16:49 | RAD ---
CT ABD PELV W/ORAL IV CONTRAST Indication: Abdominal pain Technique: Postcontrast CT imaging was performed of the abdomen and pelvis, multiplanar reconstruction images submitted. Oral contrast was also given. One or more of the following individualized dose reduction techniques were utilized for this examination: 1. Automated exposure control 2. Adjustment of the mA and/or kV according to patient size 3. Use of iterative reconstruction technique. Comparison: None Findings: There is a focus of noncalcified spiculated density of the right lower lobe the lung image 3 series 2 about 1.4 cm AP by about 1.5 cm transverse. No pleural fluid of the visualized lung bases. There are multiple splenic granulomata is also a few hepatic granulomas. No focal abnormality is identified of the liver or pancreas. There are a couple of small hypodense foci of the spleen too small to characterize about 0.5 cm. There are couple of small accessory spleens. There is no adrenal nodularity. Both kidneys enhance, no significant hydronephrosis. Gallbladder is present without obvious intraluminal abnormality by CT. Bowel is not significantly dilated. There is no free fluid or free air. There is scattered diverticulosis of the descending and sigmoid colon not associated with significant localized inflammatory type change. Normal caliber appendix is visualized without adjacent inflammatory-type change. There is grade 1 anterior spondylolisthesis at L5-S1 at which there is facet degenerative change, also vacuum disc disease L5-S1. There is fairly severe, right greater than left L5-S1 neural foramina compromise. There is more round masslike appearance of the uterus, measures on the order of 8 cm AP by 7.6 cm transverse by 7.8 cm CC. IMPRESSION: 1. There is no CT evidence of acute appendicitis, no significant inflammatory change identified. There is colonic diverticulosis. 2. There is spiculated focus of density of the right lower lobe of the lung for which dedicated chest CT is recommended. 3. There is more round masslike appearance of the uterus better characterized by ultrasound. 4. There is bilateral L5-S1 neural foramina compromise greater on the right. There is L5-S1 degenerative disc disease and grade 1 anterior spondylolisthesis due to facet degenerative change. Electronically signed by: Arian Clinton MD (07/02/2019 4:46 PM) [id number]
[2019-07-02] MEDS: HYDROcodone/APAP 5/325MG 1 TAB TABLET PO PRN (18:47)
[2019-07-02 19:50] VITALS: BP 140/51
[2019-07-02 23:45] VITALS: BP 128/48
[2019-07-03] MEDS: IV NORMAL SALINE 1000ML BAG 1,000 ML IV SCH (02:45)
[2019-07-03 03:50] VITALS: BP 134/61
[2019-07-03 07:00] VITALS: BP 146/42
[2019-07-03] MEDS: SIMVASTATIN 20 MG TABLET PO SCH (09:21)
[2019-07-03] MEDS: PANTOPRAZOLE 40 MG TABLET.DR. PO SCH (09:21)
[2019-07-03] MEDS: ALPRAZolam 0.5 MG TABLET PO SCH (09:21)
[2019-07-03] MEDS: ASPIRIN ENTERIC COATED 325 MG TABLET.DR. PO SCH (09:21)
[2019-07-03] MEDS: LOSARTAN POTASSIUM 50 MG TABLET. PO SCH (09:21)
[2019-07-03] MEDS: METOPROLOL SUCC 24HR ER 50 MG TAB.ER.24H. PO SCH (09:25)
--- NOTE | 2019-07-03 09:26 | RAD ---
CT CHEST WO CONTRAST Indication: Nodule Technique: Noncontrast CT imaging was performed of the chest, multiplanar reconstruction images submitted. One or more of the following individualized dose reduction techniques were utilized for this examination: 1. Automated exposure control 2. Adjustment of the mA and/or kV according to patient size 3. Use of iterative reconstruction technique. Comparison: CT abdomen pelvis exam 07/02/2019, no previous chest CT available Findings: There is a round noncalcified left lower lobe nodule image the 29th series 2 measuring 0.7 cm. As best seen image 38 series 2, there is again somewhat spiculated focus of reticular density of the right lower lobe, more centrally focus of slightly nodular density. This in greatest dimension, when including the linear spiculations, measures about 2.1 cm transverse by 1.8 cm AP by about 1.1 cm cc. More central focus of more confluent density measures about 0.8 cm AP by 0.8 cm transverse by 0.7 cm cc. There is also slightly more nodular appearing focus of adjacent density just laterally and inferiorly about 0.4 cm such as seen image 189 series 3. There is a tiny right upper lobe nodule best seen sagittal image 94 series 6 about 0.2 cm. There is calcified subcarinal node. There is a 0.7 cm short axis dimension precarinal node. Thoracic aortic caliber is within normal limits. There is coronary calcification. There is hypodense lesion of the left thyroid gland about 1 cm. IMPRESSION: 1. There is again spiculated focus of nodular and reticular density of the right lower lobe, no older exams to evaluate stability. PET CT, three-month follow-up, or consideration of tissue sampling is recommended as per revised Fleischner guidelines. There is also round left lower lobe pulmonary nodule as described. 2. There is coronary calcification. 3. There is 1 cm hypodense lesion left thyroid gland. Electronically signed by: Arian Clinton MD (07/03/2019 9:23 AM) [id number]
[2019-07-03] MEDS: FLUTICASONE 50MCG/NASAL SPRAY 16GM BOTTLE. NS SCH (09:40)
[2019-07-03] MEDS: INSULIN LISPRO 300 UNITS/3 ML VIAL. SQ SCH ×3 (09:44→17:02)
--- NOTE | 2019-07-03 09:49 | RAD ---
EXAM: Pelvic Ultrasound Complete INDICATION: Abnormal uterus on CT ? TECHNIQUE: Real-time ultrasound of the pelvis with permanent freeze-frame documentation. COMPARISON:?Abdomen and pelvis CT with IV contrast of 07/02/2019. ? FINDINGS: ? UTERUS:?Uterus 9.1 x 7.4 x 6.1 cm.? Endometrial thickness 0.3 cm. There is an large heterogeneous myometrial mass in the uterine fundus measuring 6.3 x 6.1 x 4.9 cm. ? RIGHT OVARY/ADNEXA: Not well seen. LEFT OVARY/ADNEXA:?Left ovary 2.2 x 2.0 x 1.5 cm. ?Unremarkable. Normal ovarian blood flow. ? OTHER:?No evidence of significant pelvic free fluid. ? IMPRESSION: ? Large intrauterine mass favored to represent a leiomyoma measuring 6.3 cm in diameter. Given its large size, consider clinical follow-up with gynecologic oncology for clinical surveillance. Electronically signed by: Kashmir Muniz MD (07/03/2019 9:45 AM) [id number]
--- NOTE | 2019-07-03 10:29 | PDOC ---
PROGRESS NOTES Subjective Subjective anxious today Objective Objective Vital Signs Date Time Temp Pulse Resp B/P (MAP) Pulse Ox O2 Delivery O2 Flow Rate FiO2 07/03/19 09:25 82 146/42 07/03/19 07:00 98.2 16 97 Room Air 98.2 07/02/19 20:00 2.0 Intake and Output 07/03/19 07:00 Intake Total 770 ml Balance 770 ml Intake Oral 420 ml IV Total 350 ml # Voids 5 Physical Exam Abdomen: Soft, No tenderness Extremities: No edema, Normal pulses General: Alert, Oriented X3, Cooperative, No acute distress HEENT: Atraumatic, Mucous membr. moist/pink Lungs: Clear to auscultation, Other (central and right chest tendernes upon palpitation) MUSCULOSKELETAL: Osteoarthritic changes both hands Neuro: Normal speech, Sensation intact Psych/Mental Status: Mental status NL, Mood NL Skin: No significant lesion Diagnosis Problem List Problems Medical Problems: (1) Chest pain Status: Acute Assessment Assessment Problems Medical Problems: (1) Chest pain Status: Acute FINAL IMPRESSION: 1. Epigastric pain, rule out coronary artery disease. 2. Possible gallbladder disease. 3. Gastroesophageal reflux disease. 4. Diabetes. 5. Hypertension. 6. Hyperlipidemia. 7. Smoking history. 8. History of mastoid surgery. PLAN:rt lung nodule 2 cm ,pulmonary consult. uterine mass ?fibroids 6 cm. f/u [facility] EGD- Gastritis ECHo good lvf cardiac enzymes neg Sono abd -neg. labs good. CT pimentel abdomenand pelvis reviewed. d/c home later today. At this time, was admitted to the hospital, seen by Cardiology. Echocardiogram and stress test 5-6 years ago was negative for ischemia and we will also have GI consult. Gallbladder sonogram and see how the patient improves in the next 24-48 hours. Plan Plan of Care Problems Medical Problems: (1) Chest pain Status: Acute Comment Review of Relevant I have reviewed the following items (where applicable) has been applied. Labs Laboratory Tests Test 07/02/19 11:17 07/02/19 16:51 07/02/19 20:37 07/03/19 02:22 Glucose (Fingerstick) 196 mg/dL (70-99) 158 mg/dL (70-99) 261 mg/dL (70-99) 248 mg/dL (70-99) Test 07/03/19 07:54 Glucose (Fingerstick) 247 mg/dL (70-99) Medications Current Medications Info (CONTRAST GIVEN -- Rx MONITORING) 1 each PRN DAILY PRN MC SEE COMMENTS; Start 07/02/19 at 14:30; Stop 07/04/19 at 14:29 Iohexol (Omnipaque 240 Mg/ml) 50 ml 1X ONCE PO Last administered on 07/02/19at 15:26; Start 07/02/19 at 14:15; Stop 07/02/19 at 14:16; Status DC Iohexol (Omnipaque 300 Mg/ml) 60 ml 1X ONCE IV Last administered on 07/02/19at 16:22; Start 07/02/19 at 14:15; Stop 07/02/19 at 14:16; Status DC Lidocaine HCl (Lidocaine Pf 2% Vial) 5 ml STK-MED ONCE .ROUTE ; Start 07/02/19 at 13:28; Stop 07/02/19 at 13:28; Status DC Metformin HCl (Glucophage) 1,000 mg BIDWMEALS PO ; Start 07/04/19 at 17:00 Propofol 20 ml @ As Directed STK-MED ONCE IV ; Start 07/02/19 at 13:28; Stop 07/02/19 at 13:28; Status DC Vitals/I & O Vital Sign - Last 24 Hours 07/02/19 07/02/19 07/02/19 07/02/19 11:59 12:58 13:03 13:54 Temp 98.0 97.9 97.6 98.0 97.9 97.6 Pulse 66 69 83 Resp 18 20 18 B/P (MAP) 138/63 (88) 138/71 Pulse Ox 97 98 99 O2 Delivery Room Air Room Air Room Air O2 Flow Rate 2 07/02/19 07/02/19 07/02/19 07/02/19 14:09 15:19 18:47 19:47 Temp 97.9 97.9 Pulse 81 68 Resp 18 18 18 18 B/P (MAP) 135/69 120/51 (74) Pulse Ox 99 96 96 O2 Delivery Room Air Room Air Room Air Room Air 07/02/19 07/02/19 07/02/19 07/02/19 19:50 20:00 20:57 23:45 Temp 98.1 98.0 98.1 98.0 Pulse 70 68 69 Resp 17 17 B/P (MAP) 140/51 (80) 120/51 128/48 (74) Pulse Ox 98 98 O2 Delivery Room Air Room Air Room Air O2 Flow Rate 2.0 07/03/19 07/03/19 07/03/19 07/03/19 03:50 07:00 09:21 09:25 Temp 98.2 98.2 98.2 98.2 Pulse 67 65 65 82 Resp 17 16 B/P (MAP) 134/61 (85) 146/42 (76) 146/42 146/42 Pulse Ox 100 97 O2 Delivery Room Air Room Air Intake and Output 07/02/19 07/02/19 07/03/19 15:00 23:00 07:00 Intake Total 350 ml 120 ml 300 ml Balance 350 ml 120 ml 300 ml MANDEEP CARRASCO MD Jul 03, 2019 10:29
[2019-07-03] MEDS ORDERED: PANT40TA77 PO (10:32)
[2019-07-03] MEDS ORDERED: HYDR-2761 PO (10:32)
--- NOTE | 2019-07-03 10:48 | PDOC ---
Subjective: Subjective: I saw her earlier this morning, had questions about imaging. No chest pain. Objective: Vital Signs: Vital Signs Date Time Temp Pulse Resp B/P (MAP) Pulse Ox O2 Delivery O2 Flow Rate FiO2 07/03/19 09:25 82 146/42 07/03/19 08:00 Room Air 07/03/19 07:00 98.2 16 97 98.2 07/02/19 20:00 2.0 Labs: Laboratory Tests Test 07/02/19 11:17 07/02/19 16:51 07/02/19 20:37 07/03/19 02:22 Glucose (Fingerstick) 196 mg/dL (70-99) 158 mg/dL (70-99) 261 mg/dL (70-99) 248 mg/dL (70-99) Test 07/03/19 07:54 Glucose (Fingerstick) 247 mg/dL (70-99) Imaging: EGD 07/02 E--mild Shatzki's ring at [facility]. Mild reflux changes as well. G--Antral erosions; biopsies taken. D--Normal to second portion. --Dilated with 52F [place]. Some blood on dilator after. Re-scoped into esophagus. Had abrasion on soft palate. No blood in esophagus or airway. IMP: GERD Shatzki's, dilated. Antral erosions, biopsies pending CT A/P IMPRESSION: 1. There is no CT evidence of acute appendicitis, no significant inflammatory change identified. There is colonic diverticulosis. 2. There is spiculated focus of density of the right lower lobe of the lung for which dedicated chest CT is recommended. 3. There is more round masslike appearance of the uterus better characterized by ultrasound. 4. There is bilateral L5-S1 neural foramina compromise greater on the right. There is L5-S1 degenerative disc disease and grade 1 anterior spondylolisthesis due to facet degenerative change. Pelv US 07/03 Large intrauterine mass favored to represent a leiomyoma measuring 6.3 cm in diameter. Given its large size, consider clinical follow-up with gynecologic oncology for clinical surveillance. Chest CT IMPRESSION: 1. There is again spiculated focus of nodular and reticular density of the right lower lobe, no older exams to evaluate stability. PET CT, three-month follow-up, or consideration of tissue sampling is recommended as per revised Fleischner guidelines. There is also round left lower lobe pul monary nodule as described. 2. There is coronary calcification. 3. There is 1 cm hypodense lesion left thyroid gland. PE: GEN: NAD, eating breakfast LUNGS: CTAB HEART: RRR ABD: NABS, S/ND/NT NEURO/PSYCH: A & O 3, anxious A/P: Chest pain - resolved SUSHMA Dyspepsia - EGD as above, path pending CRC screen - none ?leiomyoma, right pulm nodule - per primary -- Dc per primary on PPI. Outpt colonoscopy. Hemodynamically unstable?: No Is patient in severe pain?: No Is NPO status required?: No OMKAR MENDES Jul 03, 2019 10:48
--- NOTE | 2019-07-03 10:58 | NUR ---
Placed consult for Kolby FREEMAN at this time. Left message with answering service, concerning uterine mass.
[2019-07-03 11:00] VITALS: BP 170/62
--- NOTE | 2019-07-03 12:04 | PDOC ---
GENERAL General: 63 yrs old lady Postmenopausal Seen in consult for Fibroid uterus. VITAL SIGNS Vital Signs/I&O: Vital Signs Date Time Temp Pulse Resp B/P (MAP) Pulse Ox O2 Delivery O2 Flow Rate FiO2 07/03/19 09:25 82 146/42 07/03/19 08:00 Room Air 07/03/19 07:00 98.2 16 97 98.2 07/02/19 20:00 2.0 I & O 07/02/19 07/02/19 07/03/19 15:00 23:00 07:00 Intake Total 350 ml 120 ml 300 ml Balance 350 ml 120 ml 300 ml ALLERGIES Allergies: Allergies Coded Allergies Type Severity Reaction Last Updated Verified No Known Drug Allergies 07/02/19 No MEDS Medications: Current Medications Medications (Trade) Dose Ordered Sig/Case Route PRN Reason Start Time Stop Time Status Last Admin Dose Admin Iohexol (Omnipaque 300 Mg/ml) 60 ml 1X ONCE IV 07/02/19 14:15 07/02/19 14:16 DC 07/02/19 16:22 Iohexol (Omnipaque 240 Mg/ml) 50 ml 1X ONCE PO 07/02/19 14:15 07/02/19 14:16 DC 07/02/19 15:26 LAB Lab: Laboratory Tests Test 07/02/19 16:51 07/02/19 20:37 07/03/19 02:22 07/03/19 07:54 Glucose (Fingerstick) 158 mg/dL (70-99) H 261 mg/dL (70-99) H 248 mg/dL (70-99) H 247 mg/dL (70-99) H Test 07/03/19 11:33 Glucose (Fingerstick) 165 mg/dL (70-99) H ASSESSMENT & PLAN A&P Pelvic exam shows Enlarged Uterus Firm in Consistency will need Hysterectomy Later. Will discuss with Dr. Blair and Proceed with Treatment. Hemodynamically unstable?: No Is patient in severe pain?: No Is NPO status required?: No ERNA GLEASON MD Jul 03, 2019 12:04
--- NOTE | 2019-07-03 12:44 | CONS ---
DATE OF CONSULTATION: HISTORY OF PRESENT ILLNESS: This patient is a 63-year-old -[place] female, admitted to the hospital for chest pain, patient of Dr. Blair, seen in consultation for uterine fibroids. She is 3, para 3, all normal deliveries and she has had menopause about 14 years ago and does not remember when she had her last Pap smear and it has been several years according to the patient and not having any vaginal bleeding at this time and getting treatment for diabetes, hypertension as well as the chest pain. PHYSICAL EXAMINATION: PELVIC: Shows external genitalia being normal. No vaginal bleeding noted. On bimanual exam, uterus is enlarged, about 3 times the normal size, quite firm in consistency. No adnexal masses are palpable at this time. Also, there is tenderness on palpation of the uterus. DIAGNOSES: Leiomyoma of the uterus, pelvic pain. RECOMMENDATION: Would be for her to recover from all the chest pain and have complete medical treatment and when she is medically stable, we will schedule her for hysterectomy and removal of the fibroids. This has been explained to the patient and also will discuss with Dr. Blair and see the patient 1 week from today in the office and then schedule her for surgery. Thank you for giving me the opportunity to participate in the management and care of this patient. ERNA GLEASON MD DR: JUANITA/traci JOB#: [id number] / [id number]
[2019-07-03] MEDS: HYDROcodone/APAP 5/325MG 1 TAB TABLET PO PRN ×2 (12:46→17:00)
--- NOTE | 2019-07-03 13:07 | PATHOLOGY ---
[facility] Accession Number: [id number] . 01 Material submitted: . stomach - GASTRIC ANTRUM BIOPSY . 01 Clinical history: . Chest pain . 02 Diagnosis: Gastric biopsies, antrum: - Chronic gastritis, mild. LBQ 07/03/2019 0949 Local . 02 Comment: Sections of the gastric antral biopsy show congestion and mild chronic inflammation. A properly controlled immunoperxoidase stain for Helicobacter is negative for Helicobacter organisms. There is no evidence of malignancy. (JPM/db; 07/03/2019) . Special stain: Immunoperoxidase stain for Helicobacter . 02 Electronically signed: . Earnest Sandoval MD, Pathologist NPI- [id number] . 01 Gross description: . The specimen is received in formalin, labeled "Margaret Omer, gastric antrum biopsy". Received are two segments of pale devine soft tissue ranging in size from 0.2 to 0.7 cm in maximum dimensions. The specimen is submitted entirely in cassette A1. ([facility]; 07/02/2019) QA/QA 07/02/2019 1811 Local . 02 Pathologist provided ICD-10: K29.50 . 02 CPT . 251689, [id number] Specimen Comment: A courtesy copy of this report has been sent to [phone], [phone] Specimen Comment: [id number] Specimen Comment: Report sent to and Performed at: 01 [facility] [address], [place] [id number] MD Moris Hare MD Phone: [phone] Performed at: 02 [facility] [address], [place] [id number] MD Earnest Sandoval MD Phone: [phone]
--- NOTE | 2019-07-03 13:22 | PDOC ---
PULMONARY PROGRESS NOTES Vitals Vital Signs Date Time Temp Pulse Resp B/P (MAP) Pulse Ox O2 Delivery O2 Flow Rate FiO2 07/03/19 12:46 96 Room Air 07/03/19 11:00 97.8 60 20 170/62 (98) 97.8 07/02/19 20:00 2.0 Labs Laboratory Tests Test 07/01/19 16:29 07/02/19 00:06 07/02/19 04:08 07/02/19 09:33 Glucose (Fingerstick) 193 mg/dL (70-99) 257 mg/dL (70-99) 256 mg/dL (70-99) White Blood Count 7.2 x10^3/uL (4.0-11.0) Red Blood Count 3.11 x10^6/uL (3.50-5.40) Hemoglobin 9.6 g/dL (12.0-15.5) Hematocrit 29.0 % (36.0-47.0) Mean Corpuscular Volume 93 fL (79-100) Mean Corpuscular Hemoglobin 31 pg (25-35) Mean Corpuscular Hemoglobin Concent 33 g/dL (31-37) Red Cell Distribution Width 15.3 % (11.5-14.5) Platelet Count 354 x10^3/uL (140-400) Neutrophils (%) (Auto) 53 % (31-73) Lymphocytes (%) (Auto) 37 % (24-48) Monocytes (%) (Auto) 8 % (0-9) Eosinophils (%) (Auto) 2 % (0-3) Basophils (%) (Auto) 0 % (0-3) Neutrophils # (Auto) 3.8 x10^3/uL (1.8-7.7) Lymphocytes # (Auto) 2.6 x10^3/uL (1.0-4.8) Monocytes # (Auto) 0.6 x10^3/uL (0.0-1.1) Eosinophils # (Auto) 0.1 x10^3/uL (0.0-0.7) Basophils # (Auto) 0.0 x10^3/uL (0.0-0.2) Sodium Level 140 mmol/L (136-145) Potassium Level 4.8 mmol/L (3.5-5.1) Chloride Level 103 mmol/L (98-107) Carbon Dioxide Level 27 mmol/L (21-32) Anion Gap 10 (6-14) Blood Urea Nitrogen 32 mg/dL (7-20) Creatinine 1.2 mg/dL (0.6-1.0) Estimated GFR (Cockcroft-Gault) 55.3 Glucose Level 339 mg/dL (70-99) Calcium Level 8.8 mg/dL (8.5-10.1) Test 07/02/19 11:17 07/02/19 16:51 07/02/19 20:37 07/03/19 02:22 Glucose (Fingerstick) 196 mg/dL (70-99) 158 mg/dL (70-99) 261 mg/dL (70-99) 248 mg/dL (70-99) Test 07/03/19 07:54 07/03/19 11:33 Glucose (Fingerstick) 247 mg/dL (70-99) 165 mg/dL (70-99) Laboratory Tests Test 07/02/19 16:51 07/02/19 20:37 07/03/19 02:22 07/03/19 07:54 Glucose (Fingerstick) 158 mg/dL (70-99) 261 mg/dL (70-99) 248 mg/dL (70-99) 247 mg/dL (70-99) Test 07/03/19 11:33 Glucose (Fingerstick) 165 mg/dL (70-99) Medications Active Scripts Medications Dose Route/Sig Max Daily Dose Days Date Category Pantoprazole Sodium (Pantoprazole Sodium) 40 Mg Tablet.dr 40 Mg PO DAILYAC 30 07/03/19 Rx Hydrocodone-Apap 5-325 (Hydrocodone Bit/Acetaminophen) 1 Tab Tablet 1 Tab PO PRN Q6HRS PRN 5 07/03/19 Rx Clonidine Hcl 0.1 Mg Tablet 1 Tab PO QHS 10/12/15 Rx Alprazolam 0.5 Mg Tablet 0.25 Mg PO DAILY 10/12/15 Rx Nasonex (Mometasone Furoate) 17 Gm [place].pump 2 [place] NS DAILY 10/11/15 Reported Aspirin Ec (Aspirin) 325 Mg Tablet.dr 1 Tab PO DAILY 11/15/14 Reported Metoprolol Succinate ( Xl ) (Metoprolol Succinate) 25 Mg Tab.er.24h 2 Tab PO DAILY 11/15/14 Reported Travatan Z (Travoprost) 5 Ml Drops 1 Drop EACHEYE QHS 11/15/14 Reported Metformin Hcl 1,000 Mg Tablet 1,000 Mg PO BID 07/17/13 Reported Losartan Potassium 100 Mg Tablet 100 Mg PO DAILY 07/17/13 Reported Simvastatin 20 Mg Tablet 20 Mg PO DAILY 07/17/13 Reported Impression . OK TO DC NOTE DICTATED FOLLOW UP IN OFFICE IN 4 MONTHS JAEL CARROLL MD Jul 03, 2019 13:22
[2019-07-03 13:58] VITALS: BP 143/63
[2019-07-03 19:35] VITALS: BP 143/76
[2019-07-03] MEDS: cloNIDine HCL 0.1 MG TABLET PO SCH (21:00)
[2019-07-03] MEDS: LATANOPROST 0.005% OPHTH SOLUTION 2.5ML BOTTLE. OU SCH (21:00)
--- NOTE | 2019-07-03 21:30 | NUR ---
Discharged pt, acid pumper helped wheeled pt down to the car with son. Discharge orders and teaching was done by day shift nurse.
--- NOTE | 2019-07-04 01:00 | CONS ---
DATE OF CONSULTATION: 07/03/2019 ATTENDING PHYSICIAN: Dr. Blair. REASON FOR CONSULTATION: The patient is seen in pulmonary consultation at the request of Dr. Blari for abnormal CT chest. HISTORY OF PRESENT ILLNESS: The patient is a 63-year-old that presented with some epigastric discomfort. Part of her workup included CT abdomen revealing pulmonary nodule. Subsequent CT chest obtained. There was a pulmonary nodule in the left. There is some nodular density on the right. I was asked to see her in consultation. The patient does smoke. She has not had any recent acute exacerbations of COPD. She denies fever, chills, nausea, vomiting, or diarrhea. She is on no metered dose inhalers at home. She does not think she has had a previous CT of the chest. PAST MEDICAL HISTORY: Tobacco dependence, COPD, unknown FEV1, diabetes, hypertension, hyperlipidemia. PAST SURGICAL HISTORY: Tubal ligation and mastoid surgery in the past. ALLERGIES: No known drug allergies. MEDICATIONS: List was reviewed. SOCIAL HISTORY: She smokes 1 pack of cigarettes a day. FAMILY HISTORY: Diabetes, multiple sclerosis. REVIEW OF SYSTEMS: CONSTITUTIONAL: No fever or chills. EYES: No change in visual acuity. HENT: No nasal congestion or throat. PULMONARY: As indicated above. CARDIOVASCULAR: As indicated above. GASTROINTESTINAL: As indicated above. GENITOURINARY: No dysuria or frequency. MUSCULOSKELETAL: No localized muscle aches or joint pains. SKIN: No new skin rashes. NEUROLOGIC: No headaches, diplopia or blurred vision. PHYSICAL EXAMINATION: GENERAL: The patient was in no respiratory distress on room air. HEENT: Eyes, the sclerae were nonicteric. NECK: Jugular venous distention was not elevated. No lymphadenopathy. CHEST: Full expansion. LUNGS: Adequate flow, no wheezes. CARDIOVASCULAR: Regular rate and rhythm with S1, S2, no S3. ABDOMEN: Soft, nontender, nondistended. EXTREMITIES: No clubbing, cyanosis or edema. LABORATORY DATA: Electrolytes were noted. White count was normal. CT chest reviewed. IMPRESSION: 1. Abnormal CT revealing spiculated foci of nodular reticular density in the right lower lobe. 2. Left-sided pulmonary nodule. 3. Tobacco dependent. 4. Chronic obstructive pulmonary disease. 5. Epigastric pain. 6. Atypical chest pain related to reflux. PLAN: 1. The patient is due to discharge home, she will be discharged home, followed up with me in 4 months with a repeat CT chest. 2. I have written a prescription for albuterol p.r.n., two puffs q.i.d. 3. The patient is instructed on the importance of discontinuing tobacco use. I do appreciate the privilege in sharing in the patient's care. JAEL CARROLL MD DR: JUANITA/traci JOB#: [id number] / [id number]
[2019-07-04] MEDS ORDERED: metFORMIN 500 MG TABLET PO SCH (17:00)
--- NOTE | 2019-07-06 20:51 | PDOC ---
Provider Note Provider Note Discharge summary dictated.#[id number]. Hemodynamically unstable?: No Is patient in severe pain?: No Is NPO status required?: No MANDEEP CARRASCO MD Jul 06, 2019 20:51
--- NOTE | 2019-07-06 23:46 | DS ---
DATE OF DISCHARGE: 07/03/2019 REASON FOR ADMISSION TO THE HOSPITAL: Epigastric pain and chest pain too. The patient has a history of diabetes, hypertension and smoking history. CONSULTATIONS: Dr. Osman, Dr. Amato, Dr. López and Dr. Foster. PROCEDURES DONE: 1. Echocardiogram. 2. EGD. 3. CT of the abdomen and pelvis. 4. Gallbladder sonogram. 5. Pelvic sonogram. 6. CT of the chest. HOSPITAL COURSE: The patient is a 63-year-old female, came with chest pain, epigastric pain. Cardiac enzymes and EKG were negative, seen by Cardiology, had a cardiac catheterization 5 years ago, was negative. Had an echocardiogram, shows a good left ventricular function. The patient was complaining of epigastric pain and abdominal pain. Had an EGD which shows a mild Schatzki's ring, antral erosions and dilatation was done of Schatzki's ring. Pathology negative for H. pylori, negative for cancer. The patient had a CT of the abdomen and pelvis, which shows a uterine mass. The patient had a pelvic sonogram consistent with fibroid uterus, seen by ELECTRICAL CONTROLS TECHNICIAN. The patient had a CT of the abdomen, which shows a questionable nodule in the right lower lung. Had a CT of the chest, which shows a reticular density in the right lower lobe, 2 x 1.8 cm and the patient was seen by Pulmonology who recommended a repeat CT scan in 3 months and also smoking counseling was done. On the whole, the patient's condition improved and was discharged. LABORATORY DATA: Hemoglobin was 11. Creatinine 1.2. A1c 9.5. LFTs were normal. Cholesterol: LDL 127, total cholesterol 193. Thyroid was normal. Amylase and lipase were normal. FINAL DIAGNOSES: 1. Epigastric pain secondary to gastroesophageal reflux disease, Schatzki's ring, which was dilated. 2. Noncardiac chest pain. 3. Reticulonodular lesion right lower lung, on CT scan. 4. Uterine fibroid. 5. Diabetes, uncontrolled. 6. Anxiety. 7. Hypertension. 8. Smoking addiction. DISPOSITION: Home. Recommend CT chest in 2-3 months. The patient was seen by ELECTRICAL CONTROLS TECHNICIAN who recommended hysterectomy and continue smoking counseling and the patient recommended to take medications to keep A1c under good control. MANDEEP CARRASCO MD DR: CAROLINE/traci JOB#: [id number] / [id number] JUAN
== END 2019-07-03 21:30 | disposition home or self-care (01) | DRG 392 ==
LOC: ER 22:00 → ED HOLD 07-01 00:30 → 6 SOUTH 07-01 22:00
PROVIDERS: ADMIT Internal Medicine; ATTEND Internal Medicine
PROC: 0D758ZZ Dilation of Esophagus, Via Natural or Artificial Opening Endoscopic (ICD-10-PCS; principal; 2019-07-01)
PROC: 0DB58ZX Excision of Esophagus, Via Natural or Artificial Opening Endoscopic, Diagnostic (ICD-10-PCS; 2019-07-01)
DX: K21.9 Gastro-esophageal reflux disease without esophagitis (principal); K22.2 Esophageal obstruction; R07.89 Other chest pain; D25.9 Leiomyoma of uterus, unspecified; E11.65 Type 2 diabetes mellitus with hyperglycemia; E78.00 Pure hypercholesterolemia, unspecified; E78.5 Hyperlipidemia, unspecified; F17.210 Nicotine dependence, cigarettes, uncomplicated; F32.9 Major depressive disorder, single episode, unspecified; F41.9 Anxiety disorder, unspecified; H40.9 Unspecified glaucoma; H91.90 Unspecified hearing loss, unspecified ear; I10 Essential (primary) hypertension; I25.10 Atherosclerotic heart disease of native coronary artery without angina pectoris; M19.90 Unspecified osteoarthritis, unspecified site; J44.9 Chronic obstructive pulmonary disease, unspecified; K57.30 Diverticulosis of large intestine without perforation or abscess without bleeding; M43.10 Spondylolisthesis, site unspecified; M51.37 Other intervertebral disc degeneration, lumbosacral region; M54.30 Sciatica, unspecified side; Z80.3 Family history of malignant neoplasm of breast; Z82.0 Family history of epilepsy and other diseases of the nervous system; Z82.49 Family history of ischemic heart disease and other diseases of the circulatory system; Z83.3 Family history of diabetes mellitus; Z71.6 Tobacco abuse counseling
CPT/HCPCS: 36415; 43239; 43450; 71045; 71250; 74177; 76700; 76830; 76856; 80048; 80053; 80061; 82150; 82962; 83036; 83540; 83550; 83690; 83735; 83880; 84443; 84484; 85025; 88305; 88342; 93005; 93306; J1815; J1885; J2001; J2405; J2704; J3010; J7030; Q9966; Q9967; G0378

== ENCOUNTER → 2019-07-23 | Outpatient (CLI) | payer MEDICARE ==
[2019-07-02 07:59] VITALS: BP_SYST 143
[2019-07-03 19:35] VITALS: BP_DIAS 76
[~2019-07-23] MED LIST changes: +HYDR-2761 PO; +PANT40TA77 PO; +REGADENOSON 0.4 MG/5 ML DISP.SYRIN. IV ONE
--- NOTE | 2019-07-23 12:02 | RAD ---
MR#: [id number] Date of Study: 07/23/2019 Ordering Physician: NUVIA GREENBERG Referring Physician: YADIRA LAMAR Tech: RT Eusebio (R) (N) APPROVED REPORT Test Type: Pharmacological Stress Nurse/Tech: Kya Mcneill RN Test Indications: chest discomfort Cardiac History: Hypertension, Smoker, on ASA Medications: See Electronic Medical Record Medical History: See Electronic Medical Record Resting ECG: SR on EKG Resting Heart Rate: 87 bpm Resting Blood Pressure: 154/68mmHg Pretest Chest Pain: No chest pain Nurse/Tech Notes LS clear, S1S2 Consent: The procedure was explained to the patient in lay terms. Informed consent was witnessed. Kory eout was entered into [employer]. History and Stress Test performed by Kya Mcneill RN Pharm. Details Pharmacologic stress testing was performed using 0.4mg per 5ml of regadenoson given intravenously ove r 7-10 seconds. Stress Symptoms No chest pain or symptoms, Dyspnea, mild [place] POST EXERCISE Reason for Termination: Infusion complete Max Blood Pressure: 189/86mmHg Chest Pain: No. Arrhythmia: No. ST Change: No. INTERPRETATION Stress EKG Conclusion: No evidence of stress induced EKG changes. Imaging Protocol IMAGE PROTOCOL: Rest Tc-99m/stress Tc-99m 1 day Rest: Stress: Viability: Radiopharm.Tc99m SpyvnmmgkHd72g Sestamibi [id number] 30mCi Duration 13min. 13min. Img Date 07/23/2019 07/23/2019 Inj-Img [id number]. 60min. Rest Admin Site:IV - Left AntecubitalAdministrator:KERA Sprague Stress Admin Site: IV - Left AntecubitalAdministrator: RT Eusebio (Haylee)(N) STRESS DATA End Diast. Vol.59.0mlAv. Heart Rate90.0bpm End Syst. Vol.3.0mlCO Index BSA5.0L/min Myocardial Zpkg107.0gEject. Dmqhrdhj64.0% Stress Rates Pk. Fill Rate3.05EDV/secLVtime Pk. Fill 165.64msec Pk. Empty Rate5.28ESV/secLVtime Pk. Eject93.91msec 1/3 Pk. Fill1.84EDV/sec Stress Scores Regional WT0.00Summed WT0.00 Regional WM0.00Summed WM0.00 The rest and stress images show normal perfusion, normal contraction and thickening. LV Perf. Quant 17 Seg. SSS0.00 17 Seg. SRS1.00 17 Seg. SDS0.00 Stress Defect Extent (% LAD)0.00Rest Defect Extent (% LAD)0.00Rev. Defect Extent (% LAD)0.00 Stress Defect Extent (% LCX) 0.00Rest Defect Extent (% LCX)0.00Rev. Defect Extent (% LCX)0.00 Stress Defect Extent (% RCA)0.00Rest Defect Extent (% RCA)0.00Rev. Defect Extent (% RCA)0.00 Stress Defect Extent (% MICHELLE)0.00Rest Defect Extent (% MICHELLE)0.00Rev. Defect Extent (% MICHELLE)0.00 Other Information Quality:Good Risk Assessment: Low Risk Conclusion 1. No evidence of EKG changes with stress testing. 2. Normal perfusion at stress/rest. 3. Low risk study. 4. EF > 60%. Signed by : Mandeep Osman, Electronically Approved : 07/23/2019 12:02:03
== END ==
LOC: NM 08:02
PROVIDERS: ATTEND Internal Medicine Cardiovascular Disease
DX: R07.9 Chest pain, unspecified (principal)
CPT/HCPCS: 78452; 93017; A9500; J2785

== ENCOUNTER → 2019-12-24 | Outpatient (CLI) | payer MEDICARE ==
[~2019-12-24] MED LIST changes: +ASPI-630 PO; +GLIP5TAB10 PO; -REGADENOSON 0.4 MG/5 ML DISP.SYRIN. IV ONE; +TRIA1CAP3 PO
[2019-12-24 10:13] LABS: BASO # 0.1 x10^3/uL (0.0-0.2); BASO % 1 % (0-3); EOS # 0.1 x10^3/uL (0.0-0.7); EOS % 1 % (0-3); HEMATOCRIT 30.2 % (36.0-47.0); HEMOGLOBIN 9.9 g/dL (12.0-15.5); LYMPH % 34 % (24-48); MEAN CORPUSCULAR HEMOGLOBIN 31 pg (25-35); MEAN CORPUSCULAR HGB CONC 33 g/dL (31-37); MEAN CORPUSCULAR VOLUME 93 fL (79-100); MONO # 0.6 x10^3/uL (0.0-1.1); MONO % 7 % (0-9); NEUT % 57 % (31-73); PLATELET COUNT 414 x10^3/uL (140-400); RED BLOOD COUNT 3.24 x10^6/uL (3.50-5.40); RED CELL DISTRIBUTION WIDTH 14.8 % (11.5-14.5); WHITE BLOOD COUNT 8.8 x10^3/uL (4.0-11.0)
[2019-12-24 10:31] LABS: PROTHROMBIN TIME PATIENT 12.5 SEC (11.7-14.0)
[2019-12-25 00:09] LABS: HEMOGLOBIN A1C 8.9 % (4.8-5.6)
== END | disposition home or self-care (01) ==
LOC: SURGPAT 08:59
PROVIDERS: ATTEND Obstetrics & Gynecology
DX: Z01.812 Encounter for preprocedural laboratory examination (principal); Z20.828 Contact with and (suspected) exposure to other viral communicable diseases; E11.9 Type 2 diabetes mellitus without complications; I25.10 Atherosclerotic heart disease of native coronary artery without angina pectoris
CPT/HCPCS: 36415; 83036; 85025; 85610; 85730; U0003

== ENCOUNTER → 2020-01-11 | Outpatient (CLI) | payer MEDICARE ==
[2020-01-11 11:33] LABS: BASO % 0 % (0-3); EOS # 0.1 x10^3/uL (0.0-0.7); EOS % 1 % (0-3); HEMATOCRIT 30.2 % (36.0-47.0); HEMOGLOBIN 10.1 g/dL (12.0-15.5); LYMPH # 2.4 x10^3/uL (1.0-4.8); LYMPH % 31 % (24-48); MEAN CORPUSCULAR HEMOGLOBIN 31 pg (25-35); MEAN CORPUSCULAR HGB CONC 34 g/dL (31-37); MEAN CORPUSCULAR VOLUME 94 fL (79-100); MONO # 0.6 x10^3/uL (0.0-1.1); MONO % 7 % (0-9); NEUT # 4.7 x10^3/uL (1.8-7.7); NEUT % 61 % (31-73); PLATELET COUNT 440 x10^3/uL (140-400); RED BLOOD COUNT 3.23 x10^6/uL (3.50-5.40)
[2020-01-11 11:46] LABS: CALCIUM 9.2 mg/dL (8.5-10.1); CREATININE 1.1 mg/dL (0.6-1.0); GFR 60.9; POTASSIUM 4.2 mmol/L (3.5-5.1)
[2020-01-11 12:03] LABS: ALBUMIN 3.8 g/dL (3.4-5.0); ALBUMIN/GLOBULIN RATIO 0.8 (1.0-1.7); TOTAL BILIRUBIN 0.2 mg/dL (0.2-1.0); TOTAL PROTEIN 8.3 g/dL (6.4-8.2)
[2020-01-12 08:53] LABS: WHITE BLOOD COUNT 7.8 x10^3/uL (4.0-11.0)
[2020-01-12 14:12] LABS: KAPPA FREE 24.3 mg/L (3.3-19.4); KAPPA LAMBDA RATIO 0.54 (0.26-1.65); LAMBDA FREE 44.8 mg/L (5.7-26.3)
[2020-01-13 05:12] LABS: COPPER LEVEL 128 ug/dL (72-166)
[2020-01-13 15:13] LABS: ALBUM 3.9 g/dL (2.9-4.4); ALPHA 1 0.2 g/dL (0.0-0.4); ALPHA 2 0.8 g/dL (0.4-1.0); BETA 1.1 g/dL (0.7-1.3); GAMMA 1.6 g/dL (0.4-1.8); PROTEIN TOTAL 7.5 g/dL (6.0-8.5); SPEP AG RATIO 1.1 (0.7-1.7)
[2020-01-13 17:10] LABS: HGB ELECROPHORESIS COMMENT Note: (.)
== END ==
LOC: ONCLAB 10:59
PROVIDERS: ATTEND Internal Medicine Hematology & Oncology
DX: D64.9 Anemia, unspecified (principal)
CPT/HCPCS: 36415; 80053; 82525; 82607; 82728; 82746; 83010; 83020; 83520; 83540; 83550; 83615; 84165; 85025; 85045

== ENCOUNTER → 2020-02-01 | Outpatient (CLI) | payer MEDICARE | END | disposition home or self-care (01) | LOC: ONCLAB 11:42 | PROVIDERS: ATTEND Internal Medicine Hematology & Oncology | DX: D64.9 Anemia, unspecified (principal) | CPT/HCPCS: 82784; 86334 ==

== ENCOUNTER → 2020-03-03 | Outpatient (CLI) | payer MEDICARE ==
[~2020-03-03] MED LIST changes: +ALPR0.5T PO; +AMLO-186 PO; -AMLO5TAB10 PO; +CRESTOR5 MG PO; +ELDERBERRY IMMUNE; +FERR325T14 PO; +[UNRECOGNIZED DRUG - CODE] PO
[2020-03-03 14:14] LABS: BASO # 0.1 x10^3/uL (0.0-0.2); BASO % 1 % (0-3); EOS # 0.1 x10^3/uL (0.0-0.7); EOS % 1 % (0-3); HEMATOCRIT 30.2 % (36.0-47.0); HEMOGLOBIN 10.3 g/dL (12.0-15.5); LYMPH # 3.2 x10^3/uL (1.0-4.8); LYMPH % 33 % (24-48); MEAN CORPUSCULAR HEMOGLOBIN 31 pg (25-35); MEAN CORPUSCULAR HGB CONC 34 g/dL (31-37); MEAN CORPUSCULAR VOLUME 92 fL (79-100); MONO # 0.8 x10^3/uL (0.0-1.1); MONO % 8 % (0-9); NEUT # 5.5 x10^3/uL (1.8-7.7); NEUT % 57 % (31-73); PLATELET COUNT 463 x10^3/uL (140-400); RED CELL DISTRIBUTION WIDTH 14.8 % (11.5-14.5); WHITE BLOOD COUNT 9.7 x10^3/uL (4.0-11.0)
[2020-03-03 14:23] LABS: PROTHROMBIN TIME PATIENT 13.4 SEC (11.7-14.0)
[2020-03-04 02:09] LABS: HEMOGLOBIN A1C 8.7 % (4.8-5.6)
== END ==
LOC: SURGPAT 13:14
PROVIDERS: ATTEND Obstetrics & Gynecology
DX: Z01.812 Encounter for preprocedural laboratory examination (principal); Z20.828 Contact with and (suspected) exposure to other viral communicable diseases; R10.2 Pelvic and perineal pain; D64.9 Anemia, unspecified; I25.10 Atherosclerotic heart disease of native coronary artery without angina pectoris; E11.9 Type 2 diabetes mellitus without complications; E78.5 Hyperlipidemia, unspecified; I10 Essential (primary) hypertension; M51.37 Other intervertebral disc degeneration, lumbosacral region; M19.90 Unspecified osteoarthritis, unspecified site; D25.9 Leiomyoma of uterus, unspecified
CPT/HCPCS: 36415; 83036; 85025; 85610; 85730; U0003

== ENCOUNTER → 2020-05-23 | Outpatient (CLI) | payer MEDICARE ==
[2020-03-12 12:45] VITALS: BP 124/63
[2020-05-23 10:51] LABS: BASO % 1 % (0-3); EOS # 0.1 x10^3/uL (0.0-0.7); EOS % 1 % (0-3); HEMOGLOBIN 9.6 g/dL (12.0-15.5); LYMPH # 3.1 x10^3/uL (1.0-4.8); LYMPH % 32 % (24-48); MEAN CORPUSCULAR HEMOGLOBIN 30 pg (25-35); MEAN CORPUSCULAR HGB CONC 33 g/dL (31-37); MEAN CORPUSCULAR VOLUME 90 fL (79-100); MONO # 0.7 x10^3/uL (0.0-1.1); MONO % 7 % (0-9); NEUT # 5.9 x10^3/uL (1.8-7.7); NEUT % 59 % (31-73); PLATELET COUNT 443 x10^3/uL (140-400); RED BLOOD COUNT 3.21 x10^6/uL (3.50-5.40); WHITE BLOOD COUNT 9.9 x10^3/uL (4.0-11.0)
== END ==
LOC: ONCLAB 10:29
PROVIDERS: ATTEND Internal Medicine Hematology & Oncology
DX: D64.9 Anemia, unspecified (principal)
CPT/HCPCS: 36415; 82728; 83540; 83550; 85025

== ENCOUNTER → 2020-08-22 | Outpatient (CLI) | payer MEDICARE ==
[2020-03-12 12:45] VITALS: BP 124/63
[2020-08-22 11:46] LABS: BASO % 0 % (0-3); EOS # 0.1 x10^3/uL (0.0-0.7); EOS % 2 % (0-3); HEMATOCRIT 28.4 % (36.0-47.0); HEMOGLOBIN 9.3 g/dL (12.0-15.5); LYMPH # 2.6 x10^3/uL (1.0-4.8); LYMPH % 36 % (24-48); MEAN CORPUSCULAR HEMOGLOBIN 30 pg (25-35); MEAN CORPUSCULAR HGB CONC 33 g/dL (31-37); MEAN CORPUSCULAR VOLUME 90 fL (79-100); MONO # 0.6 x10^3/uL (0.0-1.1); MONO % 9 % (0-9); NEUT # 3.9 x10^3/uL (1.8-7.7); NEUT % 53 % (31-73); PLATELET COUNT 398 x10^3/uL (140-400); RED BLOOD COUNT 3.14 x10^6/uL (3.50-5.40); RED CELL DISTRIBUTION WIDTH 16.1 % (11.5-14.5); WHITE BLOOD COUNT 7.4 x10^3/uL (4.0-11.0)
== END ==
LOC: ONCLAB 10:39
PROVIDERS: ATTEND Internal Medicine Hematology & Oncology
DX: D64.9 Anemia, unspecified (principal)
CPT/HCPCS: 36415; 82728; 83540; 83550; 85025

== ENCOUNTER → 2020-09-19 | Outpatient (CLI) | payer MEDICARE ==
[2020-03-12 12:45] VITALS: BP 124/63
--- NOTE | 2020-09-20 08:39 | KCIC ---
EXAM: AP and lateral lateral views of the skull. DATE: 09/19/2020 1:05 PM CLINICAL INDICATION: Reason: SCREENING XRAY PRIOR TO MRI TODAY PER PROTOCOL / Spl. Instructions: [place] l detected near right side of skull, reported rt ear surgery. / History: COMPARISON: None. FINDINGS: Paranasal sinuses are well aerated. There are no displaced fractures. There are no orbita l radiopaque foreign bodies. Metallic densities from prior right craniotomy are again seen. IMPRESSION: 1. Metallic densities from prior right craniotomy are again seen. Electronically signed by: Suraj Jackson MD (09/20/2020 8:37 AM) [id number]
== END ==
LOC: KCIC MRI 12:33
PROVIDERS: ATTEND Internal Medicine
DX: M54.31 Sciatica, right side (principal)
CPT/HCPCS: 70250

== ENCOUNTER → 2020-10-21 | Outpatient (CLI) | payer MEDICARE ==
[2020-03-12 12:45] VITALS: BP 124/63
[2020-10-21 11:07] LABS: BASO % 1 % (0-3); EOS # 0.1 x10^3/uL (0.0-0.7); EOS % 2 % (0-3); HEMATOCRIT 30.2 % (36.0-47.0); HEMOGLOBIN 9.9 g/dL (12.0-15.5); LYMPH # 2.9 x10^3/uL (1.0-4.8); LYMPH % 37 % (24-48); MEAN CORPUSCULAR HEMOGLOBIN 31 pg (25-35); MEAN CORPUSCULAR HGB CONC 33 g/dL (31-37); MEAN CORPUSCULAR VOLUME 93 fL (79-100); MONO # 0.8 x10^3/uL (0.0-1.1); MONO % 10 % (0-9); NEUT # 4.1 x10^3/uL (1.8-7.7); NEUT % 52 % (31-73); PLATELET COUNT 452 x10^3/uL (140-400); RED BLOOD COUNT 3.25 x10^6/uL (3.50-5.40); RED CELL DISTRIBUTION WIDTH 15.9 % (11.5-14.5); WHITE BLOOD COUNT 7.9 x10^3/uL (4.0-11.0)
== END ==
LOC: ONCLAB 10:35
PROVIDERS: ATTEND Internal Medicine Hematology & Oncology
DX: D64.9 Anemia, unspecified (principal)
CPT/HCPCS: 36415; 82728; 83540; 83550; 85025

== ENCOUNTER → 2021-01-16 | Outpatient (CLI) | payer MEDICARE ==
[2020-03-12 12:45] VITALS: BP 124/63
[2021-01-16 11:29] LABS: BASO % 1 % (0-3); EOS # 0.1 x10^3/uL (0.0-0.7); EOS % 2 % (0-3); HEMATOCRIT 29.4 % (36.0-47.0); HEMOGLOBIN 9.7 g/dL (12.0-15.5); LYMPH # 2.6 x10^3/uL (1.0-4.8); LYMPH % 33 % (24-48); MEAN CORPUSCULAR HEMOGLOBIN 31 pg (25-35); MEAN CORPUSCULAR HGB CONC 33 g/dL (31-37); MEAN CORPUSCULAR VOLUME 93 fL (79-100); MONO # 0.6 x10^3/uL (0.0-1.1); MONO % 8 % (0-9); NEUT # 4.5 x10^3/uL (1.8-7.7); NEUT % 57 % (31-73); PLATELET COUNT 387 x10^3/uL (140-400); RED BLOOD COUNT 3.17 x10^6/uL (3.50-5.40); RED CELL DISTRIBUTION WIDTH 14.4 % (11.5-14.5)
[2021-01-16 11:31] LABS: ANION GAP 6 (6-14); BLOOD UREA NITROGEN 12 mg/dL (7-20); CALCIUM 9.6 mg/dL (8.5-10.1); CARBON DIOXIDE 30 mmol/L (21-32); CHLORIDE 104 mmol/L (98-107); CREATININE 1.1 mg/dL (0.6-1.0); GFR 60.7; GLUCOSE 175 mg/dL (70-99); POTASSIUM 4.4 mmol/L (3.5-5.1); SODIUM 140 mmol/L (136-145)
[2021-01-16 11:36] LABS: ALBUMIN 3.6 g/dL (3.4-5.0); ALK PHOS 124 U/L (46-116); ALT (SGPT) 16 U/L (14-59); AST (SGOT) 12 U/L (15-37); DIRECT BILIRUBIN < 0.1 mg/dL (0.0-0.2); LACTATE DEHYDROGENASE 104 U/L (81-234); TOTAL BILIRUBIN 0.2 mg/dL (0.2-1.0); TOTAL PROTEIN 7.8 g/dL (6.4-8.2)
== END ==
LOC: ONCLAB 10:55
PROVIDERS: ATTEND Internal Medicine Hematology & Oncology
DX: D50.8 Other iron deficiency anemias (principal)
CPT/HCPCS: 36415; 80048; 80076; 83615; 85025